=== PATIENT | male | born 1975 | race Caucasian/White ===

== ENCOUNTER 2016-07-21 11:18 | Emergency (ER) | payer SELFPAY, OTHER, MEDICAID ==
[~2016-07-21 11:18] MED LIST: /LOR25TA PO; ACET500T PO; CELE-19 PO; CYCL10TA PO; DICL13PA TD; IBUP200T2 PO; PERC10TA17 PO; SOMA350T PO; ULTR50TA PO; XANA1TAB2 PO
== END 2016-07-21 14:15 | disposition left against medical advice (07) ==
LOC: M ED 11:18
DX: K08.9 Disorder of teeth and supporting structures, unspecified (principal); M54.9 Dorsalgia, unspecified; Z79.899 Other long term (current) drug therapy; Z88.8 Allergy status to other drugs, medicaments and biological substances; Z53.21 Procedure and treatment not carried out due to patient leaving prior to being seen by health care provider

== ENCOUNTER → 2016-10-20 | Outpatient (CLI) | payer OTHER ==
--- NOTE | 2016-10-21 02:11 | REP ---
Clinical: Back pain. Technique: AP, lateral, bilateral oblique, and coned-down views of the lumbosacral spine. Comparison: 06/27/2015. Findings: Moderate levoconvex scoliosis centered at the L2-3 level is unchanged. Grade 1 anterolisthesis at the L5-S1 level with chronic spondylolysis is again appreciated and unchanged. No acute fracture / compression injury. Impression: Levoconvex scoliosis along with spondylolysis and grade 1 spondylolisthesis at the L5-S1 level again noted. Signed by Luis Smith MD 10/21/2016 02:02 A
== END ==
LOC: M RAD 10:24
PROVIDERS: ATTEND Physician Assistant Medical
DX: M43.17 Spondylolisthesis, lumbosacral region (principal); M47.817 Spondylosis without myelopathy or radiculopathy, lumbosacral region; M41.9 Scoliosis, unspecified

== ENCOUNTER 2016-11-23 10:51 | Emergency (ER) | payer OTHER ==
[~2016-11-23] VITALS: Ht 180.3 cm; Wt 64.9 kg
[2016-11-23] MEDS ORDERED: OXYC-517 (11:10)
[2016-11-23] MEDS ORDERED: CARI350T20 (11:10)
[2016-11-23] MEDS ORDERED: OXYC30TA84 (11:10)
[2016-11-23] MEDS ORDERED: MEDR4PAK PO (13:35)
--- NOTE | 2016-11-23 13:55 | REP ---
MR SPINE SERIES: Three views. HISTORY: Question progressive spondylolisthesis. Comparison study 10/20/2016. Comparison is also made with 06/27/2015. FINDINGS: A moderate levoconvex lumbar scoliotic curve is again seen. There is a bilateral L5 spondylolysis again noted with a grade 1 L5-S1 spondylolisthesis. This measures 7 mm today, on 06/27/2015, the measurement was 8 mm. There is no evidence of progression. There is degenerative disc narrowing at L5-S1 and some discogenic spurring and narrowing is seen at L3-4 unchanged. Lumbar vertebral body heights are preserved. Pedicles and posterior elements are otherwise intact. Sacrum and SI joints are intact. Psoas margins are symmetric. IMPRESSION: Moderate levoconvex scoliosis. Grade 1, 7 mm, stable L5-S1 spondylolisthesis due to bilateral L5 pars defects. Signed by Humphrey Dasilva MD 11/23/2016 04:41 P
[2016-11-23 13:59] VITALS: BP 124/80
== END 2016-11-23 14:10 | disposition home or self-care (01) ==
LOC: M ED 11:54
DX: M43.17 Spondylolisthesis, lumbosacral region (principal); M54.30 Sciatica, unspecified side; G89.29 Other chronic pain; Z79.899 Other long term (current) drug therapy; Z88.5 Allergy status to narcotic agent; Z88.1 Allergy status to other antibiotic agents

== ENCOUNTER 2018-03-08 11:00 | Emergency (ER) | payer OTHER | END 2018-03-08 13:20 | disposition home or self-care (01) | LOC: M ED 11:00 | DX: M54.5 Low back pain (principal); G71.0 Muscular dystrophy; F17.200 Nicotine dependence, unspecified, uncomplicated | CPT/HCPCS: 99283 ==

== ENCOUNTER 2020-02-07 17:44 | Emergency (ER) | payer OTHER ==
[~2020-02-07] VITALS: Ht 180.3 cm; Wt 65.6 kg
[~2020-02-07 17:44] MED LIST changes: +AMPH1TAB2; +CARI1TAB7; -CELE-19 PO; +CELE1CAP4 PO; +CYCL-707 PO; -CYCL10TA PO; +MEDR4PAK PO; +OXYC-517; +OXYC30TA; +OXYC30TA PO; -PERC10TA17 PO; +PERC10TA26 PO
[2020-02-07] MEDS ORDERED: AMOX875T PO (17:51)
[2020-02-07] MEDS ORDERED: QC A650T3 PO (17:52)
[2020-02-07] MEDS ORDERED: KETOROLAC 30 MG/ML 1ML VIAL IV ONE (18:30)
[2020-02-07] MEDS ORDERED: NS 1,000 ML IV ONE (18:30)
[2020-02-07] MEDS ORDERED: dexameTHASONE 20MG/5ML VIAL (J1100 PER 1MG) IV ONE (18:30)
[2020-02-07] MEDS ORDERED: AMPICILLIN SOD/SULBACTAM SOD 3 GM in D5W MINI-BAG PLUS 100 ML IV ONE (18:30)
[2020-02-07 19:11] LABS: BASO % 0.4 % (0.0-1.0); EOS % 0.4 % (0.0-3.0); HEMATOCRIT 35.2 % (42.0-52.0); HEMOGLOBIN 11.8 g/dl (13.5-17.5); LYMPH # 1.3 10^3/uL (1.5-5.0); LYMPH % 14.8 % (24.0-44.0); MEAN CORPUSCULAR HEMOGLOBIN 31.5 pg (27.0-33.0); MEAN CORPUSCULAR HGB CONC 33.5 g/dl (32.0-36.5); MEAN CORPUSCULAR VOLUME 93.9 fl (80.0-96.0); MONO # 0.7 10^3/uL (0.0-0.8); MONO % 8.7 % (0.0-5.0); NEUTROPHILS # 6.4 10^3/uL (1.5-8.5); NEUTROPHILS % 75.5 % (36.0-66.0); PLATELET COUNT, AUTOMATED 271 10^3/uL (150-450); RED BLOOD COUNT 3.75 10^6/uL (4.30-6.10); WHITE BLOOD COUNT 8.5 10^3/uL (4.0-10.0)
[2020-02-07 19:35] LABS: ERYTHROCYTE SEDIMENTATION RATE 22 mm/hr (0-15)
[2020-02-07] MEDS ORDERED: MORPHINE 4 MG/ML 1ML VIAL/SYRINGE (J2270) IV ONE (19:45)
[2020-02-07 19:56] LABS: ALBUMIN 3.5 GM/DL (3.2-5.2); ALT/SGPT 17 U/L (12-78); BILIRUBIN,DIRECT 0.1 MG/DL (0.0-0.2); BILIRUBIN,TOTAL 0.4 MG/DL (0.2-1.0); BLOOD UREA NITROGEN 10 MG/DL (7-18); C REACTIVE PROTEIN QUANTITATIV 6.59 MG/DL (0.00-0.30); CALCIUM LEVEL 9.3 MG/DL (8.5-10.1); CARBON DIOXIDE LEVEL 34 MEQ/L (21-32); CHLORIDE LEVEL 103 MEQ/L (98-107); CREATININE FOR GFR 0.69 MG/DL (0.70-1.30); GLOMERULAR FILTRATION RATE > 60.0 (>60); GLUCOSE, FASTING 94 MG/DL (70-100); POTASSIUM SERUM 4.2 MEQ/L (3.5-5.1); SODIUM LEVEL 137 MEQ/L (136-145)
[2020-02-07] MEDS ORDERED: ISOVUE-370 76% 100ML VIAL As Ordered ONE (20:15)
--- NOTE | 2020-02-07 20:36 | REPVR ---
PROCEDURE INFORMATION: Exam: CT Maxillofacial With Contrast Exam date and time: 02/07/2020 8:19 PM Age: 44 years old Clinical indication: Jaw pain; Additional info: Right face swelling/? Abscess TECHNIQUE: Imaging protocol: Computed tomography images of the face with intravenous contrast. Radiation optimization: All CT scans at this facility use at least one of these dose optimization techniques: automated exposure control; mA and/or kV adjustment per patient size (includes targeted exams where dose is matched to clinical indication); or iterative reconstruction. Contrast material: ISOVUE 370; Contrast volume: 75 ml; Contrast route: INTRAVENOUS (IV); COMPARISON: No relevant prior studies available. FINDINGS: Orbits: Orbits are normal. Globes are unremarkable. Bones/joints: Degenerative spondylosis cervical spine. Sinuses: Inflammatory changes right maxillary sinus. Nasal cavity: Small bilateral jelly bullosa. Soft tissues: Soft tissue inflammation demonstrated in the right perimandibular region. No well-defined abscess demonstrated. Asymmetric enlargement of the right sternocleidomastoid muscle, a finding of uncertain significance which should be correlated clinically. No focal lesions seen. IMPRESSION: 1. Soft tissue inflammation demonstrated in the right perimandibular region. No well-defined abscess demonstrated. 2. Inflammatory changes right maxillary sinus. 3. Asymmetric enlargement of the right sternocleidomastoid muscle, a finding of uncertain significance which should be correlated clinically. No focal lesions seen. Electronically signed by: Abhijit Parker On 02/07/2020 20:36:54 PM
[2020-02-07 22:16] VITALS: BP 122/76
[2020-02-07] MEDS ORDERED: AUGM875T28 PO (22:16)
[2020-02-07] MEDS ORDERED: PRED20TA PO (22:17)
== END 2020-02-07 22:30 | disposition home or self-care (01) ==
LOC: M ED 17:44
DX: K04.7 Periapical abscess without sinus (principal); R51 Headache; R11.10 Vomiting, unspecified; M54.9 Dorsalgia, unspecified; Z88.1 Allergy status to other antibiotic agents; Z88.5 Allergy status to narcotic agent; Z79.2 Long term (current) use of antibiotics
CPT/HCPCS: 70487; 80048; 80076; 83605; 85025; 85652; 86140; 96365; 96375; 99284; J1100; J1885; J2270; Q9967

== ENCOUNTER 2020-08-10 11:53 | Emergency (ER) | payer OTHER ==
[~2020-08-10] VITALS: Ht 180.3 cm; Wt 66.6 kg
[~2020-08-10 11:53] MED LIST changes: +AMOX875T PO; +AUGM875T28 PO; +PRED20TA PO; +QC A650T3 PO
[2020-08-10] MEDS ORDERED: BUPR1FIL5 SL (12:03)
[2020-08-10] MEDS ORDERED: IBUP200T45 PO (12:03)
[2020-08-10] MEDS ORDERED: AMPICILLIN SOD/SULBACTAM SOD 3 GM in D5W MINI-BAG PLUS 100 ML IV ONE (12:30)
[2020-08-10] MEDS ORDERED: dexameTHASONE 20MG/5ML VIAL (J1100 PER 1MG) IV ONE (12:30)
[2020-08-10] MEDS ORDERED: NS 1,000 ML IV ONE (12:30)
[2020-08-10 12:48] LABS: BASO % 0.4 % (0.0-1.0); EOS % 0.3 % (0.0-3.0); HEMATOCRIT 34.6 % (42.0-52.0); HEMOGLOBIN 11.2 g/dl (13.5-17.5); LYMPH # 1.3 10^3/uL (1.5-5.0); LYMPH % 17.9 % (24.0-44.0); MEAN CORPUSCULAR HEMOGLOBIN 30.3 pg (27.0-33.0); MEAN CORPUSCULAR HGB CONC 32.4 g/dl (32.0-36.5); MEAN CORPUSCULAR VOLUME 93.5 fl (80.0-96.0); MONO # 0.8 10^3/uL (0.0-0.8); MONO % 11.2 % (2.0-8.0); NEUTROPHILS # 5.1 10^3/uL (1.5-8.5); NEUTROPHILS % 70.1 % (36.0-66.0); PLATELET COUNT, AUTOMATED 235 10^3/uL (150-450); WHITE BLOOD COUNT 7.3 10^3/uL (4.0-10.0)
[2020-08-10] MEDS ORDERED: AUGM875T28 PO (12:53)
[2020-08-10 13:12] LABS: ERYTHROCYTE SEDIMENTATION RATE 15 mm/hr (0-15)
[2020-08-10 13:22] VITALS: BP 109/63
--- OUTSIDE RECORDS SUMMARY | 2020-08-10 13:48 | CCD ---
Author Organization Unknown Address [address] [place] [address] Phone [phone] Care Team Providers Care Online Merchandising Coordinator Name Role Phone Marlon Dewey Unavailable Unavailable Allergies Code Code System Name Reaction Severity Status Onset 034628 RxNorm Levaquin Active 04/15/2018 Tramadol Hcl Active 04/15/2018 Medications Name Status Start Date Stop Date amoxicillin 875 mg tablet TAKE ONE TABLET BY MOUTH TWICE A DAY FOR 7 DAYS Completed 04/29/2020 amoxicillin 875 mg-potassium clavulanate 125 mg tablet Completed 04/29/2020 buprenorphine 2 mg-naloxone 0.5 [address] film [address] 1 film every day by sublingual route. 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 [facility] (Lab): [address], [place] 05/27/2020 Drug of Abuse Panel, Urine Urine No observation recorded. [facility] [place] [facility]: [address] [facility] [address], [facility] [place] 04/04/2020 Drug Screen, Urine No observation recorde d. [facility] Homebound: [address], [place] Past Encounters 07/22/2020 Opioid Dependence in Remission Marlon Dewey MD: [address] [place] [address], Ph. 06/24/2020 Opioid Dependence in Remission Marlon Dewey MD: [address] [place] [address], Ph. 05/27/2020 Opioid Dependence in Remission Marlon Dewey MD: [address] [place] [address], Ph. 04/29/2020 Opioid Dependence in Remission Marlon Dewey MD: [address] [place] [address], Ph. Social History Tobacco Smoking Status Heavy Tobacco Smoker (1/2 PPD) Vaccine List Notes: Pt declined Flu vaccine Plan of Care Reminders Provider Appointments None recorded. Lab None recorded. Referral None recorded. Procedures None recorded. Surgeries None recorded. Imaging None recorded. Vitals 07/22/2020 04:20PM MAT Height Weight BMI Blood Pressure 71 in 146 lbs 20.4 kg/m2 142/86 mm[Hg] 06/24/2020 04:20PM MAT Height Weight BMI Blood Pressure 71 in 146 lbs 6 oz 20.4 kg/m2 123/78 mm[Hg] 04/29/2020 04:00PM MAT Height Weight BMI Blood Pressure 71 in 139 lbs 16 oz 19.5 kg/m2 106/70 mm[Hg] 02/12/2020 Height Weight Blood Pressure 71 in 146 lbs 7.04 oz 115/74 mm[Hg] 02/06/2020 Height Weight Blood Pressure 71 in 141 lbs 126/79 mm[Hg] 01/09/2020 Height Weight Blood Pressure 71 in 141 lbs 12.8 oz 129/81 mm[Hg] 12/12/2019 Height Weight Blood Pressure 71 in 138 lbs 110/72 mm[Hg] 11/30/2019 Height Weight Blood Pressure 71 in 141 lbs 123/79 mm[Hg]
--- OUTSIDE RECORDS SUMMARY | 2020-08-10 13:48 | CCD ---
Author Organization Unknown Address [address] [place] [address] Phone [phone] Care Team Providers Care [employer] Associate Name Role Phone Marlon Dewey Unavailable Unavailable Allergies Code Code System Name Reaction Severity Status Onset 543118 RxNorm Levaquin Active 04/15/2018 Tramadol Hcl Active 04/15/2018 Medications Name Status Start Date Stop Date amoxicillin 875 mg tablet TAKE ONE TABLET BY MOUTH TWICE A DAY FOR 7 DAYS Completed 04/29/2020 amoxicillin 875 mg-potassium clavulanate 125 mg tablet Completed 04/29/2020 buprenorphine 8 mg-naloxone 2 mg subling ual film PL[address] 1 FILM UNDER THE TONGUE EVERY DAY. MAXIMUM DAILY DOSE 1 FILM Active Not [...] of Oral Cavity Active 02/06/2020 History Procedures Notes: Double hernia operation 1987 Results Lab Results Date Name Specimen Result Interpretation Description Value Range Status Address 04/04/2020 Drug Screen, Urine No observation recorde d. [facility] Homebound: [address], [place] Past Encounters 05/27/2020 Opioid Dependence in Remission Marlon Dewey MD: [address] [place] [address], Ph. 04/29/2020 Opioid Dependence in Remission Marlon Dewey MD: [address] [place] [address], Ph. Social History Tobacco Smoking Status Heavy Tobacco Smoker (1/2 PPD) Vaccine List None recorded. Plan of Care Reminders Provider Appointments None recorded. Lab None recorded. Referral None recorded. Procedures None recorded. Surgeries None recorded. Imaging None recorded. Vitals 04/29/2020 04:00PM MAT Height Weight BMI Blood [...]
--- OUTSIDE RECORDS SUMMARY | 2020-08-10 13:48 | CCD ---
Author Organization Unknown Address [address] [place] [address] Phone [phone] Care Team Providers Care Building Superintendent Name Role Phone Marlon Dewey Unavailable Unavailable Allergies Code Code System Name Reaction Severity Status Onset 922950 RxNorm Levaquin Active 04/15/2018 Tramadol Hcl Active 04/15/2018 Medications Name Status Start Date Stop Date amoxicillin 875 mg tablet TAKE ONE TABLET BY MOUTH TWICE A DAY FOR 7 DAYS Completed 04/29/2020 amoxicillin 875 mg-potassium clavulanate 125 mg tablet Completed 04/29/2020 buprenorphine 8 mg-naloxone 2 mg subling ual film PLACE 1 FILM UNDER THE TONGUE EVERY DAY MAXIMUM DAILY DOSE 1 FILM NEXT FILL DATE 06/25/20 Active Not available buprenorphine 8 mg-naloxone 2 [...] Result Interpretation Description Value Range Status Address 05/27/2020 Drug of Abuse Panel, Urine Urine No observation recorded. [facility] [place] [facility] [place] [facility]: [address] [facility] [address], [facility] 04/04/2020 Drug Screen, Urine No observation recorde d. [facility] Homebound: [address] , [place] Past Encounters 06/24/2020 Opioid Dependence in Remission Marlon Dewey MD: [address] [place] [address], Ph. 05/27/2020 Opioid Dependence in Remission Marlon Dewey MD: [address] [place] [address], Ph. 04/29/2020 Opioid Dependence in Remission Marlon Dewey MD: [address] [place] [address], Ph. Social History Tobacco Smoking Status Heavy Tobacco Smoker (1/2 PPD) Vaccine List Notes: Pt declined Flu vaccine Plan of Care Reminders Provider Appointments None recorded. Lab None recorded. Referral None recorded. Procedures None recorded. Surgeries None recorded. Imaging None recorded. Vitals 06/24/2020 04:20PM MAT Height Weight BMI Blood [...]
--- OUTSIDE RECORDS SUMMARY | 2020-08-10 13:48 | CCD ---
Author Author [facility] Organization [facility] Address Unknown Phone Unavailable Care Team Providers [facility] [place] [facility] Supervisor Name Role Phone Zuleika Dewey MD Unavailable Unavailable Zuleika Dewey MD Unavailable Unavailable Zuleika Dewey MD Unavailable Unavailable Zuleika Dewey MD Unavailable Unavailable Zuleika Dewey MD Unavailable Unavailable Zuleika Dewey MD Unavailable Unavailable Zuleika Dewey MD Unavailable Unavailable Zuleika Dewey MD Unavailable Unavailable Zuleika Dewey MD Unavailable Unavailable Zuleika Dewey MD Unavailable Unavailable Zuleika Dewey MD Unavailable Unavailable Zuleika Dewey MD Unavailable Unavailable Zuleika Dewey MD Unavailable Unavailable Zuleika Dewey MD Unavailable Unavailable Zuleika Dewey MD Unavailable Unavailable Zuleika Dewey MD Unavailable Unavailable Zuleika Dewey MD Unavailable Unavailable Zuleika Dewey MD Unavailable Unavailable Zuleika Dewey MD Unavailable Unavailable Zuleika Dewey MD Unavailable Unavailable Zuleika Dewey MD Unavailable Unavailable Zuleika Dewey MD Unavailable Unavailable Zuleika Dewey MD Unavailable Unavailable Zuleika Dewey MD Unavailable Unavailable Zuleika Dewey MD Unavailable Unavailable Zuleika Dewey MD Unavailable Unavailable Zuleika Dewey MD Unavailable Unavailable Zuleika Dewey MD Unavailable Unavailable Zuleika Dewey MD Unavailable Unavailable Zuleika Dewey MD Unavailable Unavailable Zuleika Dewey MD Unavailable Unavailable Zuleika Dewey MD Unavailable Unavailable Zuleika Dewey MD Unavailable Unavailable Zuleika Dewey MD Unavailable Unavailable Zuleika Dewey MD Unavailable Unavailable Zuleika Dewey MD Unavailable Unavailable Zuleika Dewey MD Unavailable Unavailable Zuleika Dewey MD Unavailable Unavailable Zuleika Dewey MD Unavailable Unavailable Zuleika Dewey MD Unavailable Unavailable Zuleika Dewey MD Unavailable Unavailable Zuleika Dewey MD Unavailable Unavailable Zuleika Dewey MD Unavailable Unavailable Zuleika Dewey MD Unavailable Unavailable Zuleika Dewey MD Unavailable Unavailable Zuleika Dewey MD Unavailable Unavailable Zuleika Dewey MD Unavailable Unavailable Zuleika Dewey MD Unavailable Unavailable Zuleika Dewey MD Unavailable Unavailable Zuleika Dewey MD Unavailable Unavailable Zuleika Dewey MD Unavailable Unavailable Zuleika Dewey MD Unavailable Unavailable Zuleika Dewey MD Unavailable Unavailable Zuleika Dewey MD Unavailable Unavailable Zuleika Dewey MD Unavailable Unavailable Zuleika Dewey MD Unavailable Unavailable Zuleika Dewey MD Unavailable Unavailable Zuleika Dewey MD Unavailable Unavailable Zuleika Dewey MD Unavailable Unavailable Zuleika Dewey MD Unavailable Unavailable Zuleika Dewey MD Unavailable Unavailable Zuleika Dewey MD Unavailable Unavailable Zuleika Dewey MD Unavailable Unavailable Zuelika Dewey MD Unavailable Unavailable Zuleika Dewey MD Unavailable Unavailable Zuleika Dewey MD Unavailable Unavailable Zuleika Dewey MD Unavailable Unavailable Zuleika Dewey MD Unavailable Unavailable Zuleika Dewey MD Unavailable Unavailable Zuleika Dewey MD Unavailable Unavailable Zuleika Dewey MD Unavailable Unavailable Zuleika Dewey MD Unavailable Unavailable Zuleika Dewey MD Unavailable Unavailable Zuleika Dewey MD Unavailable Unavailable Zuleika Dewey MD Unavailable Unavailable Zuleika Dewey MD Unavailable Unavailable Zuleika Dewey MD Unavailable Unavailable Zuleika Dewey MD Unavailable Unavailable Zuleika Dewey MD Unavailable Unavailable Zuleika Dewey MD Unavailable Unavailable Zuleika Dewey MD Unavailable Unavailable Zuleika Dewey MD Unavailable Unavailable Zuleika Dewey MD Unavailable Unavailable Zuleika Dewey MD Unavailable Unavailable Zuleika Dewey MD Unavailable Unavailable Zuleika Dewey MD Unavailable Unavailable Zuleika Dewey MD Unavailable Unavailable Zuleika Dewey MD Unavailable Unavailable Zuleika Dewey MD Unavailable Unavailable Be ORTIZ Unavailable Unavailable Zuleika Dewey MD Unavailable Unavailable Zuleika Dewey MD Unavailable Unavailable Zuleika Dewey MD Unavailable Unavailable Zuleika Dewey MD Unavailable Unavailable Zuleika Dewey MD Unavailable Unavailable Zuleika Dewey MD Unavailable Unavailable Zuleika Dewey MD Unavailable Unavailable Zuleika Dewey MD Unavailable Unavailable Zuleika Dewey MD Unavailable Unavailable Zuleika Dewey MD Unavailable Unavailable Zuleika Dewey MD Unavailable Unavailable Zuleika Dewey MD Unavailable Unavailable Zuleika Dewey MD Unavailable Unavailable Zuleika Dewey MD Unavailable Unavailable Zuleika Dewey MD Unavailable Unavailable Zuleika Dewey MD Unavailable Unavailable Zuleika Dewey MD Unavailable Unavailable Zuleika Dewey MD Unavailable Unavailable Zuleika Dewey MD Unavailable Unavailable Zuleika Dewey MD Unavailable Unavailable Zuleika Dewey MD Unavailable Unavailable Zuleika Dewey MD Unavailable Unavailable Zuleika Dewey MD Unavailable Unavailable Zuleika Dewey MD Unavailable Unavailable Zuleika Dewey MD Unavailable Unavailable Zuleika Dewey MD Unavailable Unavailable Zuleika Dewey MD Unavailable Unavailable Zuleika Dewey MD Unavailable Unavailable Zuleika Dewey MD Unavailable Unavailable Zuleika Dewey MD Unavailable Unavailable Zuleika Dewey MD Unavailable Unavailable Zuleika Dewey MD Unavailable Unavailable Zuleika Dewey MD Unavailable Unavailable Zuleika Dewey MD Unavailable Unavailable Zuleika Dewey MD Unavailable Unavailable Zuleika Dewey MD Unavailable Unavailable Zuleika Dewey MD Unavailable Unavailable Zuleika Dewey MD Unavailable Unavailable Zuleika Dewey MD Unavailable Unavailable Zuleika Dewey MD Unavailable Unavailable Zuleika Dewey MD Unavailable Unavailable Zuleika Dewey MD Unavailable Unavailable Zuleika Dewey MD Unavailable Unavailable Zuleika Dewey MD Unavailable Unavailable Zuleika Dewey MD Unavailable Unavailable Zulekia Dewey MD Unavailable Unavailable Zuleika Dewey MD Unavailable Unavailable Zuleika Dewey MD Unavailable Unavailable Zuleika Dewey MD Unavailable Unavailable Zuleika Dewey MD Unavailable Unavailable Zuleika Dewey MD Unavailable Unavailable Zuleika Dewey MD Unavailable Unavailable Zuleika Dewey MD Unavailable Unavailable Zuleika Dewey MD Unavailable Unavailable Zuleika Dewey MD Unavailable Unavailable Zuleika Dewey MD Unavailable Unavailable Zuleika Dewey MD Unavailable Unavailable Zuleika Dewey MD Unavailable Unavailable Zuleika Dewey MD Unavailable Unavailable Zuleika Dewey MD Unavailable Unavailable Zuleika Dewey MD Unavailable Unavailable Zuleika Dewey MD Unavailable Unavailable Zuleika Dewey MD Unavailable Unavailable Zuleika Dewey MD Unavailable Unavailable Zuleika Dewey MD Unavailable Unavailable Zuleika Dewey MD Unavailable Unavailable Zuleika Dewey MD Unavailable Unavailable Zuleika Dewey MD Unavailable Unavailable Zuleika Dewey MD Unavailable Unavailable Zuleika Dewey MD Unavailable Unavailable Zuleika Dewey MD Unavailable Unavailable Zuleika Dewey MD Unavailable Unavailable Zuleika Dewey MD Unavailable Unavailable Zuleika Dewey MD Unavailable Unavailable Zuleika Dewey MD Unavailable Unavailable Zuleika Dewey MD Unavailable Unavailable Zuleika Dewey MD Unavailable Unavailable Zuleika Dewey MD Unavailable Unavailable Zuleika Dewey MD Unavailable Unavailable Zuleika Dewey MD Unavailable Unavailable Zuleika Dewey MD Unavailable Unavailable Zuleika Dewey MD Unavailable Unavailable Zuleika Dewey MD Unavailable Unavailable Zuleika Dewey MD Unavailable Unavailable Zuleika Dewey MD Unavailable Unavailable Zuleika Dewey MD Unavailable Unavailable Zuleika Dewey MD Unavailable Unavailable Zuleika Dewey MD Unavailable Unavailable Zuleika Dewey MD Unavailable Unavailable SLY, RAHUL MARY ALICE PA Unavailable Unavailable SLY, RAHUL MARY ALICE PA Unavailable Unavailable SLY, RAHUL MARY ALICE PA Unavailable Unavailable SLY, RAHUL MARY ALICE PA Unavailable Unavailable SLY, RAHUL MARY ALICE PA Unavailable Unavailable SLY, RAHUL MARY ALICE PA Unavailable Unavailable SLY, RAHUL MARY ALICE PA Unavailable Unavailable SLY, RAHUL MARY ALICE PA Unavailable Unavailable SLY, RAHUL MARY ALICE PA Unavailable Unavailable SLY, RAHUL MARY ALICE PA Unavailable Unavailable SLY, RAHUL MARY ALICE PA Unavailable Unavailable SLY, RAHUL MARY ALCIE PA Unavailable Unavailable SLY, RAHUL MARY ALICE PA Unavailable Unavailable SLY, RAHUL MARY ALICE PA Unavailable Unavailable SLY, RAHUL MARY ALICE PA Unavailable Unavailable SLY, RAHUL MARY ALICE PA Unavailable Unavailable SLY, RAHUL MARY ALICE PA Unavailable Unavailable SLY, RAHUL MARY ALICE PA Unavailable Unavailable SLY, RAHUL MARY ALICE PA Unavailable Unavailable SLY, RAHUL MARY ALICE PA Unavailable Unavailable RAHUL HEART Unavailable Unavailable Re-disclosure Warning The records that you are about to access may contain information from federally-assisted alcohol or drug abuse programs. If such information is present, then the following federally mandated warning applies: This information has been disclosed to you from records protected by federal confidentiality rules (42 CFR part 2). The federal rules prohibit you from making any further disclosure of this information unless further disclosure is expressly permitted by the written consent of the person to whom it pertains or as otherwise permitted by 42 CFR part 2. A general authorization for the release of medical or other information is NOT sufficient for this purpose. The Federal rules restrict any use of the information to criminally investigate or prosecute any alcohol or drug abuse patient.The records that you are about to access may contain highly sensitive health information, the redisclosure of which is protected by Article 27-F of the [facility] Public Health law. If you continue you may have access to information: Regarding HIV / AIDS; Provided by facilities licensed or operated by the [facility] Office of Mental Health; or Provided by the [facility] Office for People With Developmental Disabilities. If such information is present, then the following [facility] mandated warning applies: This information has been disclosed to you from confidential records which are protected by state law. State law prohibits you from making any further disclosure of this information without the specific written consent of the person to whom it pertains, or as otherwise permitted by law. Any unauthorized further disclosure in violation of state law may result in a fine or residential sentence or both. A general authorization for the release of medical or other information is NOT sufficient authorization for further disc losure. Family History Family Member Name Family Member Gender Family Member Status Date o f Status Description Data Source(s) Unknown Male Problem [facility]ENT ([facility]) () Unknown Unknown Encounters Encounter Providers Location Date Indications Data Source(s ) Marlon Dewey MD: [address] [place] [address], Ph. Attender: Marlon Dewey MD [facility] Medical 07/22/2020 12:00:00 AM EST [facility] ([facility]) Marlon Dewey MD: [address] [facility] [place] [address], Ph. Attender: Marlon Dewey MD [facility] Medical 06/24/2020 12:00:00 AM EST [facility] ([facility]) Marlon Dewey MD: [address] [place] [address], Ph. Attender: Marlon Dewey MD [facility] Medical 06/24/2020 12:00:00 AM EST [facility] ([facility]) Marlon Dewey MD: [address] [place] [address], Ph. Attender: Marlon Dewey MD [facility] Medical 05/27/2020 12:00:00 AM EST [facility] ([facility]) Marlon Dewey MD: [address] [place] [address], Ph. Attender: Marlon Dewey MD [facility] Medical 05/27/2020 12:00:00 AM EST [facility] ([facility]) Marlon Dewey MD: [address] [place] [address], Ph. Attender: Marlon Dewey MD [facility] Medical 05/27/2020 12:00:00 AM EST [facility] ([facility]) Outpatient Attender: Marlon Dewey MD 04/30/2020 12:00:46 AM [facility] Outpatient Attender: Marlon Dewey MD 04/29/2020 03:21:00 PM EST [facility] Marlon Dewey MD: [address] [place] [address], Ph. Attender: Marlon Dewey MD [facility] Medical 04/29/2020 12:00:00 AM EST [facility] ([facility]) Marlon Dewey MD: [address] [place] [address], Ph. Attender: Marlon Dewey MD [facility] Medical 04/29/2020 12:00:00 AM EST [facility] ([facility]) Marlon Dewey MD: [address] [place] [address], Ph. Attender: Marlon Dewey MD [facility] Medical 04/29/2020 12:00:00 AM EST [facility] ([facility]) Marlon Dewey MD: [address] [place] [address], Ph. Attender: Marlon Dewey MD [facility] Medical 04/29/2020 12:00:00 AM EST [facility] ([facility]) Outpatient Attender: Marlon Dewey MD 04/19/2020 12:02:07 AM EDT [facility] Outpatient Attender: Marlon Dewey MD 04/05/2020 01:19:02 PM EDT [facility] Outpatient Attender: Marlon Dewey MD 04/04/2020 02:37:00 PM EDT [facility] Outpatient Attender: EZEQUIEL ORTIZ 03/21/2020 10:00:00 AM [facility] Outpatient Attender: Marlon Dewey MD 03/08/2020 12:02:11 AM EDT [facility] Outpatient Attender: Marlon Dewey MD 03/07/2020 11:08:00 AM EDT [facility] Outpatient Attender: Marlon Dewey MD FP 03/07/2020 12:02:21 AM EDT [facility] Outpatient Attender: Marlon Dewey MD FP 03/06/2020 10:28:01 AM EDT [facility] Outpatient Attender: Marlon Dewey MD FP 03/04/2020 11:23:02 AM EDT [facility] Outpatient Attender: Marlon Dewey MD FP 03/04/2020 11:12:00 AM EDT [facility] Outpatient Attender: Marlon Dewey MD FP 02/29/2020 12:00:39 AM EDT [facility] Outpatient Attender: Marlon Dewey MD FP 02/12/2020 08:44:00 AM EDT [facility] Outpatient Attender: Marlon Dewey MD FP 02/07/2020 10:41:01 AM EDT [facility] Outpatient Attender: Marlon Dewey MD FP 02/07/2020 10:40:00 AM EDT [facility] Outpatient Attender: Marlon Dewey MD FP 02/06/2020 04:47:00 PM EDT [facility] Outpatient Attender: Marlon Dewey MD FP 02/01/2020 12:00:29 AM EDT [facility] Outpatient Attender: Marlon Dewey MD FP 01/09/2020 04:32:00 PM EDT [facility] Outpatient Attender: Marlon Dewey MD FP 01/08/2020 10:47:01 AM EDT [facility] Outpatient Attender: Marlon Dewey MD FP 01/02/2020 02:00:04 PM EDT [facility] Outpatient Attender: Marlon Dewey MD FP 01/02/2020 01:59:01 PM EDT [facility] Outpatient Attender: Marlon Dewey MD FP 12/12/2019 04:23:00 PM EDT [facility] Outpatient Attender: Marlon Dewey MD FP 11/30/2019 04:49:00 PM EDT [facility] Outpatient Attender: Marlon Dewey MD 11/30/2019 04:11:00 PM EDT [facility] Outpatient Attender: Marlon Dewey MD FP 11/28/2019 07:48:26 PM EDT [facility] Outpatient Attender: Marlon Dewey MD 11/22/2019 11:31:01 AM EDT [facility] Outpatient Attender: Marlon Dewey MD 11/22/2019 11:30:01 AM EDT [facility]: [facility] 11/21/2019 03:35:01 PM EDT [facility] Outpatient Attender: Marlon Dewey MD [facility] 11/21/2019 07:55:00 AM EDT [facility] Outpatient Attender: Marlon Dewey MD [facility] 11/17/2019 02:17:00 PM EDT [facility] Outpatient Attender: Marlon Dewey MD [facility] 11/17/2019 02:16:00 PM EDT [facility] Outpatient Attender: Marlon Dewey MD [facility] 11/17/2019 02:15:00 PM EDT [facility] Outpatient Attender: Marlon MARTINEZ 11/17/2019 09:25:01 AM EDT [facility] Outpatient Attender: Marlon CHAMBERS 11/17/2019 09:24:00 AM EDT [facility] Outpatient Attender: Marlon CHAMBERS 11/17/2019 09:23:01 AM EDT [facility] Outpatient Attender: Marlon CHAMBERS 11/15/2019 12:22:00 PM EDT [facility] Outpatient Attender: Marlon CHAMBERS 06/29/2019 10:18:00 AM EST [facility] Emergency Attender: [facility] 10/22/2015 08:22:00 PM EDT - 10/22/2015 09:35:[address] [facility] Medications Medication Brand Name Start Date Product Form Dose Route Admi nistrative Instructions Pharmacy Instructions Status Indications Reaction Description Data Source(s) 8-2 mg 07/22/2020 12:00:00 AM EST film [address] ONE FILM UNDER THE TONGUE EVERY DAY MAXIMUM DAILY DOSE = [address] ONE FILM UNDER THE TONGUE EVERY DA Y MAXIMUM DAILY DOSE = 1 FILM SOLD: 07/22/2020 [facility] 2-0.5 mg 07/22/2020 12:00:00 AM EST film 30 PLACE ONE FILM UNDER THE TONGUE EVERY DAY MAXIMUM DAILY DOSE = [address] ONE FILM UNDER THE TONGUE EVERY DA Y MAXIMUM DAILY DOSE = 1 FILM SOLD: 07/22/2020 [facility] 8-2 mg 06/25/2020 12:00:00 AM EST film 30 PL[address] ONE FILM UNDER THE TONGUE EVERY DAY MAXIMUM DAILY DOSE = [address] ONE FILM UNDER THE TONGUE EVERY DA Y MAXIMUM DAILY DOSE = 1 FILM SOLD: 06/25/2020 [facility] 8-2 mg 05/27/2020 12:00:00 AM EST film 30 PLACE 1 FILM UNDER THE TONGUE EVERY DAY MAXIMUM DAILY DOSE = 1 FILM NEXT FILL DATE 06/25/20 PLACE 1 FILM UNDER THE TONGUE EVERY DAY MAXIMUM DAILY DOSE = 1 FILM NEXT FILL DATE 06/25/20 SOLD: 05/27/2020 [facility] 8-2 mg 05/01/2020 12:00:00 AM EST film 30 PLACE 1 FILM UNDER THE TONGUE EVERY DAY. MAXIMUM DAILY DOSE = [address] 1 FILM UNDER THE TONGUE EVERY DAY. MAXIMUM DAILY DOSE = 1 FILM SOLD: 05/02/2020 [facility] 8-2 mg 04/05/2020 12:00:00 AM EDT film 30 PLACE ONE FILM UNDER THE TONGUE EVERY DAY MAXIMUM DAILY DOSE = 1 PLACE ONE FILM UNDER THE TONGUE EVERY DA Y MAXIMUM DAILY DOSE = 1 SOLD: 04/07/2020 [facility] 8-2 mg 03/09/2020 12:00:00 AM EDT film 30 PL[address] ONE FILM UNDER THE TONGUE EVERY DAY MAXIMUM DAILY DOSE = [address] ONE FILM UNDER THE TONGUE EVERY DA Y MAXIMUM DAILY DOSE = 1 FILM SOLD: 03/09/2020 [facility] 8-2 mg 02/12/2020 12:00:00 AM EDT film 30 TAKE 1 FILM UNDER THE TONGUE DAILY. MAXIMUM DAILY DOSE = 1 FILM TAKE 1 FILM UNDER THE TONGUE DAILY. MAXI MUM DAILY DOSE = 1 FILM SOLD: 02/12/2020 [facility] 20 mg 02/08/2020 12:00:00 AM EDT tablet 15 TAKE THREE TABLETS BY MOUTH DAILY TAKE THREE TABLETS BY MOUTH DAILY SOLD: 02/08/2020 [facility] 875-125 mg 02/08/2020 12:00:00 AM EDT tablet 20 TAKE ONE TABLET BY MOUTH TWICE A DAY TAKE ONE TABLET BY MOUTH TWICE A DAY SOLD: 02/08/2020 [facility] 8-2 mg 02/06/2020 12:00:00 AM EDT film 7 PLACE ONE FILM UNDER THE TONGUE EVERY DAY MAXIMUM DAILY DOSE = [address] ONE FILM UNDER THE TONGUE EVERY DA Y MAXIMUM DAILY DOSE = 1 FILM SOLD: 02/06/2020 [facility] 875 mg 02/06/2020 12:00:00 AM EDT tablet 14 TAKE ONE TABLET BY MOUTH TWICE A DAY FOR 7 DAYS TAKE ONE TABLET BY MOUTH TWICE A DAY FOR 7 DAYS SOLD: 2019 [facility] 8-2 mg 01/09/2020 12:00:00 AM EDT film 30 PLACE ONE FILM UNDER THE TONGUE EVERY DAY MAXIMUM DAILY DOSE = ONE FILM PLACE ONE FILM UNDER THE TONGUE EVERY DAY MAXIMUM DAILY DOSE = ONE FILM SOLD: 01/09/2020 [facility] 8-2 mg 12/12/2019 12:00:00 AM EDT film 30 PLACE ONE FILM UNDER THE TONGUE EVERY DAY MAXIMUM DAILY DOSE = [address] ONE FILM UNDER THE TONGUE EVERY DA Y MAXIMUM DAILY DOSE = 1 FILM SOLD: 12/12/2019 [facility] 8-2 mg 11/30/2019 12:00:00 AM EDT tablet, sublingual 14 PLACE ONE TABLET UNDER THE TONGUE EVERY DAY MAXIMUM DAILY DOSE = [address] ONE TABLET UNDER THE TONGUE EVERY DAY MAXIMUM DAILY DOSE = 1 FILM SOLD: 11/30/2019 [facility] 8-2 mg 11/17/2019 12:00:00 AM EDT film 14 TAKE 1 FILM UNDER THE TONGUE DAILY MAXIMUM DAILY DOSE = 1 TAKE 1 FILM UNDER THE TONGUE DAILY MAXIM UM DAILY DOSE = 1 SOLD: 11/17/2019 [facility] Prednisone 20 MG Oral Tablet prednisone 20 mg tablet TAKE THREE TABLETS BY MOUTH DAILY prednisone 20 mg tablet TAKE THREE TABLETS BY MOUTH DAILY completed prednisone 20 MG Oral Tablet [facility] ([facility]) Buprenorphine 8 MG / Naloxone 2 MG Subli ngual Tablet buprenorphine 8 mg-naloxone 2 mg sublingual tablet buprenorphine 8 mg-naloxone 2 mg sublingual tablet completed buprenorphine 8 MG / naloxone 2 MG Sublingual Tablet [facility] ([facility]) Prednisone 20 MG Oral Tablet prednisone 20 mg tablet TAKE THREE TABLETS BY MOUTH DAILY prednisone 20 mg tablet TAKE THREE TABLETS BY MOUTH DAILY completed prednisone 20 MG Oral Tablet [facility] ([facility]) Amoxicillin 875 MG Oral Tablet amoxicill in 875 mg tablet TAKE ONE TABLET BY MOUTH TWICE A DAY FOR 7 DAYS amoxicillin 875 mg tablet TAKE ONE TABLE T BY MOUTH TWICE A DAY FOR 7 DAYS completed amoxicillin 875 MG Oral Tablet [facility] ([facility]) Amoxicillin 875 MG / Clavulanate 125 MG Oral Tablet amoxicillin 875 mg-potassium clavulanate 125 mg tablet amoxicillin 875 mg-potassium clavulanate 125 mg tablet completed amoxicillin 875 MG / clavulanate 125 MG Oral Tablet [facility] ([facility]) Prednisone 20 MG Oral Tablet prednisone 20 mg tablet TAKE THREE TABLETS BY MOUTH DAILY prednisone 20 mg tablet TAKE THREE TABLETS BY MOUTH DAILY completed prednisone 20 MG Oral Tablet [facility] ([facility]) Amoxicillin 875 MG / Clavulanate 125 MG Oral Tablet amoxicillin 875 mg-potassium clavulanate 125 mg tablet amoxicillin 875 mg-potassium clavulanate 125 mg tablet completed amoxicillin 875 MG / clavulanate 125 MG Oral Tablet [facility] ([facility]) Amoxicillin 875 MG / Clavulanate 125 MG Oral Tablet amoxicillin 875 mg-potassium clavulanate 125 mg tablet amoxicillin 875 mg-potassium clavulanate 125 mg tablet completed amoxicillin 875 MG / clavulanate 125 MG Oral Tablet [facility] ([facility]) Amoxicillin 875 MG Oral Tablet amoxicill in 875 mg tablet TAKE ONE TABLET BY MOUTH TWICE A DAY FOR 7 DAYS amoxicillin 875 mg tablet TAKE ONE TABLE T BY MOUTH TWICE A DAY FOR 7 DAYS completed amoxicillin 875 MG Oral Tablet [facility] ([facility]) Amoxicillin 875 MG Oral Tablet amoxicill in 875 mg tablet TAKE ONE TABLET BY MOUTH TWICE A DAY FOR 7 DAYS amoxicillin 875 mg tablet TAKE ONE TABLE T BY MOUTH TWICE A DAY FOR 7 DAYS completed amoxicillin 875 MG Oral Tablet [facility] ([facility]) Amoxicillin 875 MG / Clavulanate 125 MG Oral Tablet amoxicillin 875 mg-potassium clavulanate 125 mg tablet amoxicillin 875 mg-potassium clavulanate 125 mg tablet completed amoxicillin 875 MG / clavulanate 125 MG Oral Tablet [place] ([facility]) Buprenorphine 8 MG / Naloxone 2 MG Subli ngual Tablet buprenorphine 8 mg-naloxone 2 mg sublingual tablet buprenorphine 8 mg-naloxone 2 mg sublingual tablet completed buprenorphine 8 MG / naloxone 2 MG Sublingual Tablet [facility]) Buprenorphine 8 MG / Naloxone 2 MG Subli ngual Tablet buprenorphine 8 mg-naloxone 2 mg sublingual tablet buprenorphine 8 mg-naloxone 2 mg sublingual tablet completed buprenorphine 8 MG / naloxone 2 MG Sublingual Tablet [facility]) Prednisone 20 MG Oral Tablet prednisone 20 mg tablet TAKE THREE TABLETS BY MOUTH DAILY prednisone 20 mg tablet TAKE THREE TABLETS BY MOUTH DAILY completed prednisone 20 MG Oral Tablet [facility] ([facility]) Buprenorphine 8 MG / Naloxone 2 MG Subli ngual Tablet buprenorphine 8 mg-naloxone 2 mg sublingual tablet buprenorphine 8 mg-naloxone 2 mg sublingual tablet completed buprenorphine 8 MG / naloxone 2 MG Sublingual Tablet [place] ([facility]) Amoxicillin 875 MG Oral Tablet amoxicill in 875 mg tablet TAKE ONE TABLET BY MOUTH TWICE A DAY FOR 7 DAYS amoxicillin 875 mg tablet TAKE ONE TABLE T BY MOUTH TWICE A DAY FOR 7 DAYS completed amoxicillin 875 MG Oral Tablet [place] ([facility]) Insurance Providers Payer name Policy type / Coverage type Policy ID Covered alliance party ID Covered alliance party's relationship to kurtz Policy [place] Plan Information [facility] [employer] [id number] S [id number] Managed Care - [facility] Community Plan P [id number] S [id number] Medicaid S [id number] S [id number] [facility] [id number] S [id number] MEDICAID [id number] S [id number] [facility](MCAID) O [id number] S [id number] [facility] [id number] S [id number] [facility] COMMUNITY PLAN [facility] [id number] SP [id number] Medicaid S [id number] S [id number] SELF PAY UNAVAILABLE SP UNAVAILA BLE Managed Care - [facility] P [id number] S [id number] Medicaid S [id number] S [id number] Managed Care - [facility] P [id number] S [id number] [facility] I [id number] Self [id number] ANSI-Medicaid [id number] MVP EXCHANGE U [id number] Self [id number] Medicaid S none S none Self Pay P none S none ANS-Medicaid [id number] ANS-Medicaid [id number] [facility] COMMUNTY PLAN [id number] [facility] Communty Plan Medicaid [id number] Self [id number] COMMUNITY PLAN XIX [id number] 18 [id number] [facility] Communty Plan Medicaid [id number] Self 10 [id number] [facility] Communty Plan Medicaid [id number] Self 10 [id number] [employer] BENEFIT SOLUTIO O [id number] S [id number] AMERICHOICE UNHC XIX O -[facility] [id number] 1 [id number] LIFETIME BENEFIT SOLUTIONS [id number] SP [id number] [facility] [id number] SP [id number] SELF PAY ONLY UNAVAILABLE SP UNAV AILABLE MEDICAID [id number] SP [id number] SELF PAY ONLY [id number] SP [id number] SELF PAY SP [id number] S [id number] [facility] HMO [id number] S [id number] SELF PAY SP UNAVAILABLE UNAVAILA BLE [facility] HMO [id number] S [id number] Self Pay P UNAVAILABLE S UNAVAILA BLE D MVP P UNAVAILABLE S UNAVAILA BLE MVP EXCHANGE U [id number] Self [id number] [place] Medigap Part B Self [place] Medigap Part B Self c Community Plan [facility] Health Maintenance Organization (HMO) Self [facility] COMMUNITY PL[facility] UNKNOWN SP UNKNOWN [id number] Problems, Conditions, and Diagnoses Code Display Name Description Problem Type Effective Dates Data Source(s) 849336317 Mass of oral cavity Mass of Oral Cavity Problem 0 02/06/2020 12:00:00 AM EDT [place] ([facility]) [id number] Mass of oral cavity Mass of Oral Cavity Problem 0 02/06/2020 12:00:00 AM EDT [place] ([facility]) 650450409 Mass of oral cavity Mass of Oral Cavity Problem 0 02/06/2020 12:00:00 AM EDT [place] ([facility]) 661303411 Mass of oral cavity Mass of Oral Cavity Problem 0 02/06/2020 12:00:00 AM EDT [place] ([facility]) 940806476 Opioid dependence in remission Opioid Dependence in Re mission Problem 11/30/2019 12:00:00 AM EDT [place] ([facility]) 275344902 Opioid dependence in remission Opioid Dependence in Re mission Problem 11/30/2019 12:00:00 AM EDT [place] ([facility]) 207962415 Opioid dependence in remission Opioid Dependence in Re mission Problem 11/30/2019 12:00:00 AM EDT [place] ([facility]) 834922185 Opioid dependence in remission Opioid Dependence in Re mission Problem 11/30/2019 12:00:00 AM EDT [place] ([facility]) F60.9 Personality disorder, unspecified PERSONALITY DI SORDER, UNSPECIFIED Diagnosis 03/21/2020 10:00:[address] [facility] Results ID Date Data Source [id number] 06/24/2020 12:00:00 AM EST [facility]) Name Value Range Interpretation Code Description Data Tanisha rce(s) Supporting Document(s) ID Date Data Source [id number] 05/27/2020 12:46:00 PM EST [place] ([facility]) Name Value Range Interpretation Code Description Data Tanisha rce(s) Supporting Document(s) ID Date Data Source [id number] 05/27/2020 12:46:00 PM EST [facility]) Name Value Range Interpretation Code Description Data Tanisha rce(s) Supporting Document(s) ID Date Data Source [id number] 04/04[facility]2020 [facility] Name Value Range Interpretation Code Description Data Tanisha rce(s) Supporting Document(s) ID Date Data Source [id number] 04/04/2020 12:00:00 [facility] Name Value Range Interpretation Code Description Data Tanisha rce(s) Supporting Document(s) ID Date Data Source [id number] 04/04/2020 12:00:00 [facility] Name Value Range Interpretation Code Description Data Tanisha rce(s) Supporting Document(s) ID Date Data Source [id number] 04/04/2020 12:00:00 [facility] Name Value Range Interpretation Code Description Data Tanisha rce(s) Supporting Document(s) Procedure Vital Signs ID Date Data Source UNK Name Value Range Interpretation Code Description Data Source(s) Body weight 2336 [oz_av] 2336 [oz_av] [place] ([facility]) Systolic blood pressure 142 mm[Hg] 142 mm[Hg] A [place] ([facility]) Body mass index (BMI) [Ratio] 20.4 kg/m2 20.4 k g/m2 [place] ([facility]) Body height 71 [in_i] 71 [in_i] [place] ([facility]) Diastolic blood pressure 86 mm[Hg] 86 mm[Hg] [place] ([facility]) Body weight 2342 [oz_av] 2342 [oz_av] [facility] ([facility]) Systolic blood pressure 123 mm[Hg] 123 mm[Hg] [facility] Body mass index (BMI) [Ratio] 20.4 kg/m2 20.4 k g/m2 [place] ([facility]) Body height 71 [in_i] 71 [in_i] [place] ([facility]) Diastolic blood pressure 78 mm[Hg] 78 mm[Hg] [place] ([facility]) Body weight 2342 [oz_av] 2342 [oz_av] [place] ([facility]) Systolic blood pressure 123 mm[Hg] 123 mm[Hg] A [place] ([facility]) Body mass index (BMI) [Ratio] 20.4 kg/m2 20.4 k g/m2 [place] ([facility]) Body height 71 [in_i] 71 [in_i] [place] ([facility]) Diastolic blood pressure 78 mm[Hg] 78 mm[Hg] [place] ([facility]) Body weight 2240 [oz_av] 2240 [oz_av] [place] ([facility]) Systolic blood pressure 106 mm[Hg] 106 mm[Hg] A [place] ([facility]) Body mass index (BMI) [Ratio] 19.5 kg/m2 19.5 k g/m2 [place] ([facility]) Body height 71 [in_i] 71 [in_i] [place] ([facility]) Diastolic blood pressure 70 mm[Hg] 70 mm[Hg] [place] ([facility]) Body weight 2240 [oz_av] 2240 [oz_av] [place] ([facility]) Systolic blood pressure 106 mm[Hg] 106 mm[Hg] A [facility] ([facility]) Body mass index (BMI) [Ratio] 19.5 kg/m2 19.5 k g/m2 [place] ([facility]) Body height 71 [in_i] 71 [in_i] [place] ([facility]) Diastolic blood pressure 70 mm[Hg] 70 mm[Hg] [place] ([facility]) Body weight 2240 [oz_av] 2240 [oz_av] [place] ([facility]) Systolic blood pressure 106 mm[Hg] 106 mm[Hg] A [facility] ([facility]) Body mass index (BMI) [Ratio] 19.5 kg/m2 19.5 k g/m2 [place] ([facility]) Body height 71 [in_i] 71 [in_i] [place] ([facility]) Diastolic blood pressure 70 mm[Hg] 70 mm[Hg] [place] ([facility]) Body weight 2240 [oz_av] 2240 [oz_av] [place] ([facility]) Systolic blood pressure 106 mm[Hg] 106 mm[Hg] A [facility] ([facility]) Body mass index (BMI) [Ratio] 19.5 kg/m2 19.5 k g/m2 [place] ([facility]) Body height 71 [in_i] 71 [in_i] [place] ([facility]) Diastolic blood pressure 70 mm[Hg] 70 mm[Hg] [place] ([facility]) Body height 71 [in_i] 71 [in_i] [place] ([facility]) Diastolic blood pressure 74 mm[Hg] 74 mm[Hg] [place] ([facility]) Body weight 2343.04 [oz_av] 2343.04 [oz_av] ATH [place] ([facility]) Systolic blood pressure 115 mm[Hg] 115 mm[Hg] A [facility] ([facility]) Body height 71 [in_i] 71 [in_i] [place] ([facility]) Diastolic blood pressure 74 mm[Hg] 74 mm[Hg] [place] ([facility]) Body weight 2343.04 [oz_av] 2343.04 [oz_av] ATH [facility] ([facility]) Systolic blood pressure 115 mm[Hg] 115 mm[Hg] [facility] Body height 71 [in_i] 71 [in_i] [place] ([facility]) Diastolic blood pressure 74 mm[Hg] 74 mm[Hg] [place] ([facility]) Body weight 2343.04 [oz_av] 2343.04 [oz_av] ATH [facility] ([facility]) Systolic blood pressure 115 mm[Hg] 115 mm[Hg] [facility] Body height 71 [in_i] 71 [in_i] [place] ([facility]) Diastolic blood pressure 74 mm[Hg] 74 mm[Hg] [facility] ([facility]) Body weight 2343.04 [oz_av] 2343.04 [oz_av] ATH [facility] ([facility]) Systolic blood pressure 115 mm[Hg] 115 mm[Hg] [facility] Body weight 2256 [oz_av] 2256 [oz_av] [place] ([facility]) Systolic blood pressure 126 mm[Hg] 126 mm[Hg] [facility] Body height 71 [in_i] 71 [in_i] [place] ([facility]) Diastolic blood pressure 79 mm[Hg] 79 mm[Hg] [place] ([facility]) Body weight 2256 [oz_av] 2256 [oz_av] [place] ([facility]) Systolic blood pressure 126 mm[Hg] 126 mm[Hg] [facility] Body height 71 [in_i] 71 [in_i] [place] ([facility]) Diastolic blood pressure 79 mm[Hg] 79 mm[Hg] [place] ([facility]) Body weight 2256 [oz_av] 2256 [oz_av] [place] ([facility]) Systolic blood pressure 126 mm[Hg] 126 mm[Hg] [facility] Body height 71 [in_i] 71 [in_i] [place] ([facility]) Diastolic blood pressure 79 mm[Hg] 79 mm[Hg] [place] ([facility]) Body weight 2256 [oz_av] 2256 [oz_av] [place] ([facility]) Systolic blood pressure 126 mm[Hg] 126 mm[Hg] [facility] Body height 71 [in_i] 71 [in_i] [place] ([facility]) Diastolic blood pressure 79 mm[Hg] 79 mm[Hg] [place] ([facility]) Body weight 2268.8 [oz_av] 2268.8 [oz_av] ATHEN A ([facility]) Systolic blood pressure 129 mm[Hg] 129 mm[Hg] A [facility] ([facility]) Body height 71 [in_i] 71 [in_i] [place] ([facility]) Diastolic blood pressure 81 mm[Hg] 81 mm[Hg] [place] ([facility]) Body weight 2268.8 [oz_av] 2268.8 [oz_av] [facility] A ([facility]) Systolic blood pressure 129 mm[Hg] 129 mm[Hg] [facility] Body height 71 [in_i] 71 [in_i] [place] ([facility]) Diastolic blood pressure 81 mm[Hg] 81 mm[Hg] [place] ([facility]) Body weight 2268.8 [oz_av] 2268.8 [oz_av] ATHEN A ([facility]) Systolic blood pressure 129 mm[Hg] 129 mm[Hg] [facility] Body height 71 [in_i] 71 [in_i] [place] ([facility]) Diastolic blood pressure 81 mm[Hg] 81 mm[Hg] [place] ([facility]) Body weight 2268.8 [oz_av] 2268.8 [oz_av] A[place]EN A ([facility]) Systolic blood pressure 129 mm[Hg] 129 mm[Hg] [facility] Body height 71 [in_i] 71 [in_i] [place] ([facility]) Diastolic blood pressure 81 mm[Hg] 81 mm[Hg] [place] ([facility]) Body weight 2208 [oz_av] 2208 [oz_av] [facility] ([facility]) Systolic blood pressure 110 mm[Hg] 110 mm[Hg] [facility] Body height 71 [in_i] 71 [in_i] [place] ([facility]) Diastolic blood pressure 72 mm[Hg] 72 mm[Hg] [facility] ([facility]) Body weight 2208 [oz_av] 2208 [oz_av] [facility] ([facility]) Systolic blood pressure 110 mm[Hg] 110 mm[Hg] [facility] Body height 71 [in_i] 71 [in_i] [place] ([facility]) Diastolic blood pressure 72 mm[Hg] 72 mm[Hg] [facility] ([facility]) Body weight 2208 [oz_av] 2208 [oz_av] [place] ([facility]) Systolic blood pressure 110 mm[Hg] 110 mm[Hg] A [place] ([facility]) Body height 71 [in_i] 71 [in_i] [place] ([facility]) Diastolic blood pressure 72 mm[Hg] 72 mm[Hg] [facility] ([facility]) Body weight 2208 [oz_av] 2208 [oz_av] [facility] ([facility]) Systolic blood pressure 110 mm[Hg] 110 mm[Hg] [facility] Body height 71 [in_i] 71 [in_i] [place] ([facility]) Diastolic blood pressure 72 mm[Hg] 72 mm[Hg] [facility] ([facility]) Body weight 2256 [oz_av] 2256 [oz_av] [place] ([facility]) Systolic blood pressure 123 mm[Hg] 123 mm[Hg] A [place] ([facility]) Body height 71 [in_i] 71 [in_i] [place] ([facility]) Diastolic blood pressure 79 mm[Hg] 79 mm[Hg] [place] ([facility]) Body weight 2256 [oz_av] 2256 [oz_av] [place] ([facility]) Systolic blood pressure 123 mm[Hg] 123 mm[Hg] A [place] ([facility]) Body height 71 [in_i] 71 [in_i] [place] ([facility]) Diastolic blood pressure 79 mm[Hg] 79 mm[Hg] [place] ([facility]) Body weight 2256 [oz_av] 2256 [oz_av] [place] ([facility]) Systolic blood pressure 123 mm[Hg] 123 mm[Hg] A [place] ([facility]) Body height 71 [in_i] 71 [in_i] [place] ([facility]) Diastolic blood pressure 79 mm[Hg] 79 mm[Hg] [place] ([facility]) Body weight 2256 [oz_av] 2256 [oz_av] [place] ([facility]) Systolic blood pressure 123 mm[Hg] 123 mm[Hg] A [place] ([facility]) Body height 71 [in_i] 71 [in_i] [place] ([facility]) Diastolic blood pressure 79 mm[Hg] 79 mm[Hg] [facility] ([facility]) Patient Treatment Plan of Care Planned Activity Planned Date Details Description Data Source (s) Prednisone 20 MG Oral Tablet [place] ([facility]) Buprenorphine 8 MG / Naloxone 2 MG Sublingual Tablet [place] ([facility]) Amoxicillin 875 MG / Clavulanate 125 MG Oral Tablet [place] ([facility]) Amoxicillin 875 MG Oral Tablet [place] ([facility]) Prednisone 20 MG Oral Tablet [place] ([facility]) Buprenorphine 8 MG / Naloxone 2 MG Sublingual Tablet [place] ([facility]) Amoxicillin 875 MG / Clavulanate 125 MG Oral Tablet [place] ([facility]) Amoxicillin 875 MG Oral Tablet [place] ([facility]) Prednisone 20 MG Oral Tablet [place] ([facility]) Buprenorphine 8 MG / Naloxone 2 MG Sublingual Tablet [place] ([facility]) Amoxicillin 875 MG / Clavulanate 125 MG Oral Tablet [place] ([facility]) Amoxicillin 875 MG Oral Tablet [place] ([facility]) Prednisone 20 MG Oral Tablet [place] ([facility]) Buprenorphine 8 MG / Naloxone 2 MG Sublingual Tablet [place] ([facility]) Amoxicillin 875 MG / Clavulanate 125 MG Oral Tablet [place] ([facility]) Amoxicillin 875 MG Oral Tablet [place] ([facility])
--- OUTSIDE RECORDS SUMMARY | 2020-08-10 13:58 | CCD ---
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 Public Health law. If you continue you may have access to information: Regarding HIV / AIDS; Provided by facilities licensed or operated by the [facility] Office of Mental Health; or Provided by the [facility] Office for People With Developmental Disabilities. If such information is present, then the following [facility] mandated warning applies: This information has [...] law may result in a fine or fpc sentence or both. A general authorization for the release of medical or other information is NOT sufficient authorization for further disc losure. Family History Family Member Name Family Member Gender Family Member Status Date o f Status Description Data Source(s) Unknown Male Problem [facility] ([facility]) () Unknown Unknown Encounters Encounter Providers Location Date Indications Data Source(s ) Marlon Dewey MD: [address] [place] [address], Ph. Attender: Marlon Dewey MD [facility] Medical 07/22/2020 12:00:00 AM OCT[facility]IO [facility] ([facility]) Marlon Dewey MD: [address] [place] [address], Ph. Attender: Marlon Dewey MD [facility] Medical 06/24/2020 12:00:00 AM EST [place] ([facility]) Marlon Dewey MD: [address] [place] [address], Ph. Attender: Marlon Dewey MD [facility] Medical 06/24/2020 12:00:00 AM EST [place] ([facility]) Marlon Dewey MD: [address] [place] [address], Ph. Attender: Marlon Dewey MD [facility] Medical 05/27/2020 12:00:00 AM EST [place] ([facility]) Marlon Dewey MD: [address] [place] [address], Ph. Attender: Marlon Dewey MD [facility] Medical 05/27/2020 12:00:00 AM EST [place] ([facility]) Marlon Dewey MD: [address] [place] [address], Ph. Attender: Marlon Dewey MD [facility] Medical 05/27/2020 12:00:00 AM EST [place] ([facility]) Outpatient Attender: Marlon Dewey MD 04/30/2020 12:00:46 AM [facility] Outpatient Attender: Marlon Dewey MD 04/29/2020 03:21:00 PM EST [facility] Marlon Dewey MD: [address] [place] [address], Ph. Attender: Marlon Dewey MD [facility] Medical 04/29/2020 12:00:00 AM EST [place] ([facility]) Marlon Dewey MD: [address] [place] [address], Ph. Attender: Marlon Dewey MD [facility] Medical 04/29/2020 12:00:00 AM EST [place] ([facility]) Marlon Dewey MD: [address] [place] [address], Ph. Attender: Marlon Dewey MD [facility] Medical 04/29/2020 12:00:00 AM EST [place] ([facility]) Marlon Dewey MD: [address] [place] [address], Ph. Attender: Marlon Dewey MD [facility] Medical 04/29/2020 12:00:00 AM EST [place] ([facility]) Outpatient Attender: Marlon Dewey MD 04/19/2020 12:02:07 AM EDT [facility] Outpatient Attender: Marlon Dewey MD 04/05/2020 01:19:02 PM EDT [facility] Outpatient Attender: Marlon Dewey MD 04/04/2020 02:37:00 PM EDT [facility] Outpatient Attender: EZEQUIEL ORTIZ 03/21/2020 10:00:[address] [facility] Outpatient Attender: Marlon Dewey MD 03/08/2020 12:02:11 AM EDT [facility] Outpatient Attender: Marlon Dewey MD 03/07/2020 11:08:00 AM EDT [facility] Outpatient Attender: Marlon Dewey MD 03/07/2020 12:02:21 AM EDT [facility] Outpatient Attender: Marlon Dewey MD FP 03/06/2020 10:28:01 AM EDT [facility] Outpatient Attender: Marlon Dewey MD FP 03/04/2020 11:23:02 AM EDT [facility] Outpatient Attender: Marlon Dewey MD FP 03/04/2020 11:12:00 AM EDT [facility] Outpatient Attender: Marlon Dewey MD FP 02/29/2020 12:00:39 AM EDT [facility] Outpatient Attender: Marlon Dewey MD 02/12/2020 08:44:00 AM EDT [facility] Outpatient Attender: Marlon Dewey MD FP [...] Health Outpatient Attender: Marlon Dewey MD 11/30/2019 04:49:00 PM EDT [facility] Outpatient Attender: Marlon Dewey MD 11/30/2019 04:11:00 PM EDT [facility] Outpatient Attender: Marlon Dewey MD 11/28/2019 07:48:26 PM EDT [facility] Outpatient Attender: Marlon Dewey MD 11/22/2019 11:31:01 AM EDT [facility] Outpatient Attender: Marlon Dewey MD 11/22/2019 11:30:01 AM EDT [facility]: [facility] 11/21/2019 03:35:01 PM EDT [facility] Outpatient Attender: Marlon Dewey MD [facility] 11/21/2019 07:55:00 AM EDT [facility] Outpatient Attender: Marlon Dewey MD [facility] 11/17/2019 02:17:00 PM EDT [facility] Outpatient Attender: Marlon Dewey MD [facility] 11/17/2019 02:16:00 PM EDT [facility] Outpatient Attender: [facility] Dewey [facility] 11/17/2019 02:15:00 PM EDT [facility] Outpatient Attender: Marlon MARTINEZ 11/17/2019 09:25:01 AM EDT [facility] Outpatient Attender: Marlon CHAMBERS 11/17/2019 09:24:00 AM EDT [facility] Outpatient Attender: Marlon CHAMBERS 11/17/2019 09:23:01 AM EDT [facility] Outpatient Attender: Marlon CHAMBERS 11/15/2019 12:22:00 PM EDT [facility] Outpatient Attender: Marlon CHAMBERS 06/29/2019 10:18:00 AM EST [facility] Emergency Attender: [facility] 10/22/2015 08:22:00 PM EDT - 10/22/2015 09:35:00 PM T [facility] Medications Medication Brand Name Start Date Product Form Dose Route Admi nistrative Instructions Pharmacy Instructions Status Indications Reaction Description Data Source(s) 8-2 mg 07/22/2020 12:00:00 AM EST film [address] ONE FILM UNDER THE TONGUE EVERY DAY MAXIMUM DAILY DOSE = [address] ONE FILM UNDER THE TONGUE EVERY DA Y MAXIMUM DAILY DOSE = 1 FILM SOLD: 07/22/2020 [facility] 2-0.5 mg 07/22/2020 12:00:00 AM EST [...] DAILY DOSE = ONE FILM SOLD: 01/09/2020 [facility] 8-2 mg 12/12/2019 12:00:00 AM EDT [...] prednisone 20 MG Oral Tablet ATH DERIK ([facility]) Buprenorphine 8 MG / Naloxone 2 MG Subli ngual Tablet buprenorphine 8 mg-naloxone 2 mg sublingual tablet buprenorphine 8 mg-naloxone 2 mg sublingual tablet completed buprenorphine 8 MG / naloxone 2 MG Sublingual Tablet [place] ([facility]) Prednisone 20 MG Oral Tablet prednisone 20 mg tablet TAKE THREE TABLETS BY MOUTH DAILY prednisone 20 mg tablet TAKE THREE TABLETS BY MOUTH DAILY completed prednisone 20 MG Oral Tablet ATH DERIK ([facility]) Amoxicillin 875 MG Oral Tablet amoxicill in 875 mg tablet TAKE ONE TABLET BY MOUTH TWICE A DAY FOR 7 DAYS amoxicillin 875 mg tablet TAKE ONE TABLE T BY MOUTH TWICE A DAY FOR 7 DAYS completed amoxicillin 875 MG Oral Tablet [place] ([facility]) Amoxicillin 875 MG / Clavulanate 125 MG Oral Tablet amoxicillin 875 mg-potassium clavulanate 125 mg tablet amoxicillin 875 mg-potassium clavulanate 125 mg tablet completed amoxicillin 875 MG / clavulanate 125 MG Oral Tablet [place] ([facility]) Prednisone 20 MG Oral Tablet prednisone 20 mg tablet TAKE THREE TABLETS BY MOUTH DAILY prednisone 20 mg tablet TAKE THREE TABLETS BY MOUTH DAILY completed prednisone 20 MG Oral Tablet ATH [facility]ERIK ([facility]) Amoxicillin 875 MG / Clavulanate 125 MG Oral Tablet amoxicillin 875 mg-potassium clavulanate 125 mg tablet amoxicillin 875 mg-potassium clavulanate 125 mg tablet completed amoxicillin 875 MG / clavulanate 125 MG Oral Tablet [place] ([facility]) Amoxicillin 875 MG / Clavulanate 125 MG Oral Tablet amoxicillin 875 mg-potassium clavulanate 125 mg tablet amoxicillin 875 mg-potassium clavulanate 125 mg tablet completed amoxicillin 875 MG / clavulanate 125 MG Oral Tablet [place] ([facility]) Amoxicillin 875 MG Oral Tablet amoxicill in 875 mg tablet TAKE ONE TABLET BY MOUTH TWICE A DAY FOR 7 DAYS amoxicillin 875 mg tablet TAKE ONE TABLE T BY MOUTH TWICE A DAY FOR 7 DAYS completed amoxicillin 875 MG Oral Tablet [place] ([facility]) Amoxicillin 875 MG Oral Tablet amoxicill in 875 mg tablet TAKE ONE TABLET BY MOUTH TWICE A DAY FOR 7 DAYS amoxicillin 875 mg tablet TAKE ONE TABLE T BY MOUTH TWICE A DAY FOR 7 DAYS completed amoxicillin 875 MG Oral Tablet [place] ([facility]) Amoxicillin 875 MG / Clavulanate 125 MG Oral Tablet amoxicillin 875 mg-potassium clavulanate 125 mg tablet amoxicillin 875 mg-potassium clavulanate 125 mg tablet completed amoxicillin 875 MG / clavulanate 125 MG Oral Tablet [place] ([facility]) Buprenorphine 8 MG / Naloxone 2 MG Subli ngual Tablet buprenorphine 8 mg-naloxone 2 mg sublingual tablet buprenorphine 8 mg-naloxone 2 mg sublingual tablet completed buprenorphine 8 MG / naloxone 2 MG Sublingual Tablet [facility]) Buprenorphine 8 MG / Naloxone 2 MG Subli ngual Tablet buprenorphine 8 mg-naloxone 2 mg sublingual tablet buprenorphine 8 mg-naloxone 2 mg sublingual tablet completed buprenorphine 8 MG / naloxone 2 MG Sublingual Tablet [facility]) Prednisone 20 MG Oral Tablet prednisone 20 mg tablet TAKE THREE TABLETS BY MOUTH DAILY prednisone 20 mg tablet TAKE THREE TABLETS BY MOUTH DAILY completed prednisone 20 MG Oral Tablet [facility] ([facility]) Buprenorphine 8 MG / Naloxone 2 MG Subli ngual Tablet buprenorphine 8 mg-naloxone 2 mg sublingual tablet buprenorphine 8 mg-naloxone 2 mg sublingual tablet completed buprenorphine 8 MG / naloxone 2 MG Sublingual Tablet [place] ([facility]) Amoxicillin 875 MG Oral Tablet amoxicill in 875 mg tablet TAKE ONE TABLET BY MOUTH TWICE A DAY FOR 7 DAYS amoxicillin 875 mg tablet TAKE ONE TABLE T BY MOUTH TWICE A DAY FOR 7 DAYS completed amoxicillin 875 MG Oral Tablet [place] ([facility]) Insurance Providers Payer name Policy type / Coverage type Policy ID Covered green party ID Covered green party's relationship to kurtz Policy Kurtz Plan Information [facility] COMMUNITY PLAN MCDO [id number] SP [id number] SELF PAY UNAVAILABLE SP UNAVAILA BLE [facility] [id number] S [id number] Man[facility] - [facility] Community Plan P [id number] S [id number] Medicaid S [id number] S [id number] [facility] STRATEGIES [id number] S [id number] MEDICAID [id number] [facility](MCAID) O [id number] S [id number] [facility] [id number] S [id number] Medicaid S [id number] S [id number] Managed Care - [facility] P [id number] S [id number] Medicaid S [id number] S [id number] Managed Care - [facility] P [id number] S [id number] [facility] I [id number] Self [id number] ANSI-Medicaid [id number] MVP EXCHANGE U [id number] Self [id number] Medicaid S none S none Self Pay P none S none ANS-Medicaid [id number] ANS-Medicaid [id number] [facility] COMMUNTY PLAN [id number] 18 [id number] [facility] Communty Plan Medicaid [id number] Self 10 [id number] HC COMMUNITY PLAN XIX [id number] [facility] Communty Plan Medicaid [id number] Self 10 [id number] [facility] Communty Plan Medicaid [id number] Self 10 [id number] LIFETIME BENEFIT SOLUTIO O [id number] S [id number] AMERICHOICE UNHC XIX [facility] [id number] 1 [id number] LIFETIME BENEFIT SOLUTIONS [id number] SP [id number] [facility] [id number] SP [id number] SELF PAY ONLY UNAVAILABLE SP UNAV AILABLE MEDICAID [id number] SP [id number] SELF PAY ONLY [id number] SP [id number] SELF PAY SP [id number] S [id number] [facility] COMM HMO [id number] S [id number] SELF PAY SP UNAVAILABLE UNAVAILA BLE [facility] ARIANNA HMO [id number] S [id number] Self Pay P UNAVAILABLE S UNAVAILA BLE D MVP P UNAVAILABLE S UNAVAILA BLE MVP EXCHANGE U [id number] Self [id number] [place] Medigap Part B Self Medicaid [place] Medigap Part B Self c Community Plan Commercial Self [facility] Health Maintenance Organization (HMO) Self UN COMMUNITY PLAN [facility] UN[facility] SP UNKNOWN [id number] Problems, Conditions, and Diagnoses Code Display Name Description Problem Type Effective Dates Data Source(s) 145429160 Mass of oral cavity Mass of Oral Cavity Problem 0 02/06/2020 12:00:00 AM EDT [place] ([facility]) 217174669 Mass of oral cavity Mass of Oral Cavity Problem 0 02/06/2020 12:00:00 AM EDT [place] ([facility]) 581660712 Mass of oral cavity Mass of Oral Cavity Problem 0 02/06/2020 12:00:00 AM EDT [place] ([facility]) [id number] Mass of oral cavity Mass of Oral Cavity Problem 0 02/06/2020 12:00:00 AM EDT [place] ([facility]) 417946031 Opioid dependence in remission Opioid Dependence in Re mission Problem 11/30/2019 12:00:00 AM EDT [place] ([facility]) 950946799 Opioid dependence in remission Opioid Dependence in Re mission Problem 11/30/2019 12:00:00 AM EDT [place] ([facility]) 986410732 Opioid dependence in remission Opioid Dependence in Re mission Problem 11/30/2019 12:00:00 AM EDT [place] ([facility]) 342968138 Opioid dependence in remission Opioid Dependence in Re mission Problem 11/30/2019 12:00:00 AM EDT [place] ([facility]) F60.9 Personality disorder, unspecified PERSONALITY DI SORDER, UNSPECIFIED Diagnosis 03/21/2020 10:00:00 AM EDT [facility] Results ID Date Data Source [id number] 06/24/2020 12:00:00 AM EST [place] [facility]) Name Value Range Interpretation Code Description Data Tanisha rce(s) Supporting Document(s) ID Date Data Source [id number] 05/27/2020 12:46:00 PM EST [place] ([facility]) Name Value Range Interpretation Code Description Data Tanisha rce(s) Supporting Document(s) ID Date Data Source [id number] 05/27/2020 12:46:00 PM EST [place] [facility]) Name Value Range Interpretation Code Description Data Tanisha rce(s) Supporting Document(s) ID Date Data Source [id number] 04/04/2020 12:00[facility] Name Value Range Interpretation Code Description Data Tanisha rce(s) Supporting Document(s) ID Date Data Source [id number] 04/04/2020 12:00:00 AM ED[facility] Name Value Range Interpretation Code Description Data Tanisha rce(s) Supporting Document(s) ID Date Data Source [id number] 04/04/2020 12:00:00 AM EDT [facility] Name Value Range Interpretation Code Description Data Tanisha rce(s) Supporting Document(s) ID Date Data Source [id number] 04/04/2020 12:00:00 AM EDT [facility] Name Value Range Interpretation Code Description Data Tanisha rce(s) Supporting Document(s) Procedure Vital Signs ID Date Data Source UNK Name Value Range Interpretation Code Description Data Source(s) Body weight 2336 [oz_av] 2336 [oz_av] [facility] ([facility]) Systolic blood pressure 142 mm[Hg] 142 mm[Hg] A THEN ([facility]) Body mass index (BMI) [Ratio] 20.4 kg/m2 20.4 k g/m2 [place] ([facility]) Body height 71 [in_i] 71 [in_i] [place] ([facility]) Diastolic blood pressure 86 mm[Hg] 86 mm[Hg] [place] ([facility]) Body weight 2342 [oz_av] 2342 [oz_av] [place] ([facility]) Systolic blood pressure 123 mm[Hg] 123 mm[Hg] A [facility] ([facility]) Body mass index (BMI) [Ratio] 20.4 kg/m2 20.4 k g/m2 [place] ([facility]) Body height 71 [in_i] 71 [in_i] [place] ([facility]) Diastolic blood pressure 78 mm[Hg] 78 mm[Hg] [place] ([facility]) Body weight 2342 [oz_av] 2342 [oz_av] [place] ([facility]) Systolic blood pressure 123 mm[Hg] 123 mm[Hg] A THEN ([facility]) Body mass index (BMI) [Ratio] 20.4 kg/m2 20.4 k g/m2 [place] ([facility]) Body height 71 [in_i] 71 [in_i] [place] ([facility]) Diastolic blood pressure 78 mm[Hg] 78 mm[Hg] [place] ([facility]) Body weight 2240 [oz_av] 2240 [oz_av] [place] ([facility]) Systolic blood pressure 106 mm[Hg] 106 mm[Hg] A THENA ([facility]) Body mass index (BMI) [Ratio] 19.5 kg/m2 19.5 k g/m2 [place] ([facility]) Body height 71 [in_i] 71 [in_i] [place] ([facility]) Diastolic blood pressure 70 mm[Hg] 70 mm[Hg] [place] ([facility]) Body weight 2240 [oz_av] 2240 [oz_av] [place] ([facility]) Systolic blood pressure 106 mm[Hg] 106 mm[Hg] A [facility] ([facility]) Body mass index (BMI) [Ratio] 19.5 kg/m2 19.5 k g/m2 [place] ([facility]) Body height 71 [in_i] 71 [in_i] [place] ([facility]) Diastolic blood pressure 70 mm[Hg] 70 mm[Hg] [place] ([facility]) Body weight 2240 [oz_av] 2240 [oz_av] [place] ([facility]) Systolic blood pressure 106 mm[Hg] 106 mm[Hg] A [facility] ([facility]) Body mass index (BMI) [Ratio] 19.5 kg/m2 19.5 k g/m2 [place] ([facility]) Body height 71 [in_i] 71 [in_i] [place] ([facility]) Diastolic blood pressure 70 mm[Hg] 70 mm[Hg] [place] ([facility]) Body weight 2240 [oz_av] 2240 [oz_av] [place] ([facility]) Systolic blood pressure 106 mm[Hg] 106 mm[Hg] A [facility] ([facility]) Body mass index (BMI) [Ratio] 19.5 kg/m2 19.5 k g/m2 [place] ([facility]) Body height 71 [in_i] 71 [in_i] [place] ([facility]) Diastolic blood pressure 70 mm[Hg] 70 mm[Hg] [place] ([facility]) Body height 71 [in_i] 71 [in_i] [place] ([facility]) Diastolic blood pressure 74 mm[Hg] 74 mm[Hg] [place] ([facility]) Body weight 2343.04 [oz_av] 2343.04 [oz_av] ATH [facility]ER[facility] ([facility]) Systolic blood pressure 115 mm[Hg] 115 mm[Hg] A [facility] ([facility]) Body height 71 [in_i] 71 [in_i] [place] ([facility]) Diastolic blood pressure 74 mm[Hg] 74 mm[Hg] [place] ([facility]) Body weight 2343.04 [oz_av] 2343.04 [oz_av] ATH [facility] ([facility]) Systolic blood pressure 115 mm[Hg] 115 mm[Hg] [facility] Body height 71 [in_i] 71 [in_i] [place] ([facility]) Diastolic blood pressure 74 mm[Hg] 74 mm[Hg] [place] ([facility]) Body weight 2343.04 [oz_av] 2343.04 [oz_av] ATH [facility] ([facility]) Systolic blood pressure 115 mm[Hg] 115 mm[Hg] [facility] Body height 71 [in_i] 71 [in_i] [place] ([facility]) Diastolic blood pressure 74 mm[Hg] 74 mm[Hg] [place] ([facility]) Body weight 2343.04 [oz_av] 2343.04 [oz_av] ATH [facility] ([facility]) Systolic blood pressure 115 mm[Hg] 115 mm[Hg] [facility] Body weight 2256 [oz_av] 2256 [oz_av] [place] ([facility]) Systolic blood pressure 126 mm[Hg] 126 mm[Hg] [facility] Body height 71 [in_i] 71 [in_i] [place] ([facility]) Diastolic blood pressure 79 mm[Hg] 79 mm[Hg] [place] ([facility]) Body weight 2256 [oz_av] 2256 [oz_av] [place] ([facility]) Systolic blood pressure 126 mm[Hg] 126 mm[Hg] [facility] Body height 71 [in_i] 71 [in_i] [place] ([facility]) Diastolic blood pressure 79 mm[Hg] 79 mm[Hg] [place] ([facility]) Body weight 2256 [oz_av] 2256 [oz_av] [place] ([facility]) Systolic blood pressure 126 mm[Hg] 126 mm[Hg] [facility] Body height 71 [in_i] 71 [in_i] [place] ([facility]) Diastolic blood pressure 79 mm[Hg] 79 mm[Hg] [place] ([facility]) Body weight 2256 [oz_av] 2256 [oz_av] [place] ([facility]) Systolic blood pressure 126 mm[Hg] 126 mm[Hg] [facility] Body height 71 [in_i] 71 [in_i] [place] ([facility]) Diastolic blood pressure 79 mm[Hg] 79 mm[Hg] [place] ([facility]) Body weight 2268.8 [oz_av] 2268.8 [oz_av] ATHEN A ([facility]) Systolic blood pressure 129 mm[Hg] 129 mm[Hg] A [facility] ([facility]) Body height 71 [in_i] 71 [in_i] [place] ([facility]) Diastolic blood pressure 81 mm[Hg] 81 mm[Hg] [place] ([facility]) Body weight 2268.8 [oz_av] 2268.8 [oz_av] ATHEN A ([facility]) Systolic blood pressure 129 mm[Hg] 129 mm[Hg] [facility] Body height 71 [in_i] 71 [in_i] [place] ([facility]) Diastolic blood pressure 81 mm[Hg] 81 mm[Hg] [place] ([facility]) Body weight 2268.8 [oz_av] 2268.8 [oz_av] ATHEN A ([facility]) Systolic blood pressure 129 mm[Hg] 129 mm[Hg] A THENA ([facility]) Body height 71 [in_i] 71 [in_i] [place] ([facility]) Diastolic blood pressure 81 mm[Hg] 81 mm[Hg] [place] ([facility]) Body weight 2268.8 [oz_av] 2268.8 [oz_av] ATHEN A ([facility]) Systolic blood pressure 129 mm[Hg] 129 mm[Hg] [facility] Body height 71 [in_i] 71 [in_i] [place] ([facility]) Diastolic blood pressure 81 mm[Hg] 81 mm[Hg] [place] ([facility]) Body weight 2208 [oz_av] 2208 [oz_av] [facility] [facility]) Systolic blood pressure 110 mm[Hg] 110 mm[Hg] [facility] Body height 71 [in_i] 71 [in_i] [facility] ([facility]) Diastolic blood pressure 72 mm[Hg] 72 mm[Hg] [facility] ([facility]) Body weight 2208 [oz_av] 2208 [oz_av] [facility] ([facility]) Systolic blood pressure 110 mm[Hg] 110 mm[Hg] [facility] Body height 71 [in_i] 71 [in_i] [facility] ([facility]) Diastolic blood pressure 72 mm[Hg] 72 mm[Hg] [facility] ([facility]) Body weight 2208 [oz_av] 2208 [oz_av] [facility] ([facility]) Systolic blood pressure 110 mm[Hg] 110 mm[Hg] [facility] ([facility]) Body height 71 [in_i] 71 [in_i] [facility] ([facility]) Diastolic blood pressure 72 mm[Hg] 72 mm[Hg] [facility] ([facility]) Body weight 2208 [oz_av] 2208 [oz_av] [facility] ([facility]) Systolic blood pressure 110 mm[Hg] 110 mm[Hg] [facility] Body height 71 [in_i] 71 [in_i] [facility] ([facility]) Diastolic blood pressure 72 mm[Hg] 72 mm[Hg] [facility] ([facility]) Body weight 2256 [oz_av] 2256 [oz_av] [facility] ([facility]) Systolic blood pressure 123 mm[Hg] 123 mm[Hg] [facility] ([facility]) Body height 71 [in_i] 71 [in_i] [facility] ([facility]) Diastolic blood pressure 79 mm[Hg] 79 mm[Hg] [facility] ([facility]) Body weight 2256 [oz_av] 2256 [oz_av] [facility] ([facility]) Systolic blood pressure 123 mm[Hg] 123 mm[Hg] [facility] ([facility]) Body height 71 [in_i] 71 [in_i] [facility] ([facility]) Diastolic blood pressure 79 mm[Hg] 79 mm[Hg] [facility] ([facility]) Body weight 2256 [oz_av] 2256 [oz_av] [facility] ([facility]) Systolic blood pressure 123 mm[Hg] 123 mm[Hg] [facility] ([facility]) Body height 71 [in_i] 71 [in_i] [facility] ([facility]) Diastolic blood pressure 79 mm[Hg] 79 mm[Hg] [facility] ([facility]) Body weight 2256 [oz_av] 2256 [oz_av] [facility] ([facility]) Systolic blood pressure 123 mm[Hg] 123 mm[Hg] [facility] ([facility]) Body height 71 [in_i] 71 [in_i] [facility] ([facility]) Diastolic blood pressure 79 mm[Hg] 79 mm[Hg] [facility] ([facility]) Patient Treatment Plan of Care Planned Activity Planned Date Details Description Data Source (s) Prednisone 20 MG Oral Tablet [facility] ([facility]) Buprenorphine 8 MG / Naloxone 2 MG Sublingual Tablet [facility] ([facility]) Amoxicillin 875 MG / Clavulanate 125 MG Oral Tablet [facility] ([facility]) Amoxicillin 875 MG Oral Tablet [facility] ([facility]) [facility] B[facility] 8 MG / Naloxone 2 MG Sublingual Tablet [facility] ([facility]) Amoxicillin 875 MG / Clavulanate 125 MG Oral Tablet [facility] ([facility]) Amoxicillin 875 MG Oral Tablet [facility] ([facility]) Prednisone 20 MG Oral Tablet [facility] ([facility]) Buprenorphine 8 MG / Naloxone 2 MG Sublingual Tablet [facility] ([facility]) Amoxicillin 875 MG / Clavulanate 125 MG Oral Tablet [facility] ([facility]) Amoxicillin 875 MG Oral Tablet [facility] ([facility]) Prednisone 20 MG Oral Tablet [facility] ([facility]) Buprenorphine 8 MG / Naloxone 2 MG Sublingual Tablet [facility] ([facility]) Amoxicillin 875 MG / Clavulanate 125 MG Oral Tablet [facility] ([facility]) Amoxicillin 875 MG Oral Tablet [facility] ([facility])
== END 2020-08-10 13:24 | disposition home or self-care (01) ==
LOC: M ED 11:53
DX: K08.89 Other specified disorders of teeth and supporting structures (principal); F17.200 Nicotine dependence, unspecified, uncomplicated; Z79.2 Long term (current) use of antibiotics; Z79.899 Other long term (current) drug therapy
CPT/HCPCS: 80047; 85025; 85652; 86140; 96365; 96375; 99283; J1100

== ENCOUNTER → 2021-02-17 | Outpatient (CLI) | payer OTHER ==
[~2021-02-17] MED LIST changes: +BUPR1FIL SL; +BUPR1FIL35 SL; +IBUP200T45 PO
== END ==
LOC: M LABSMTC 09:17
PROVIDERS: ATTEND Anesthesiology
DX: Z01.818 Encounter for other preprocedural examination (principal); Z11.52 Encounter for screening for COVID-19

== ENCOUNTER 2021-02-20 10:51 | Day surgery (SDC) | payer OTHER ==
[~2021-02-20] VITALS: Ht 180.3 cm; Wt 63.9 kg
[~2021-02-20 10:51] MED LIST changes: +AMPICILLIN SOD/SULBACTAM SOD 3 GM in D5W MINI-BAG PLUS 100 ML IV ONE; +LR 1,000 ML IV ONE; +dexameTHASONE 4 MG/ML 1ML VIAL (J1100 PER 1MG) IV ONE
[2021-02-20] MEDS ORDERED: LIDOCAINE 2% 100MG/5ML SDV (FOR ANES.) As Ordered ONE (13:50)
[2021-02-20] MEDS ORDERED: propofoL 200 MG/20 ML VIAL As Ordered ONE (13:50)
[2021-02-20] MEDS ORDERED: ROCURONIUM BROMIDE 50 MG/5 ML VIAL As Ordered ONE (13:50)
[2021-02-20] MEDS ORDERED: fentaNYL 100 MCG/2 ML INJECTION (J3010) As Ordered ONE ×2 (13:51→16:23)
[2021-02-20] MEDS ORDERED: ONDANSETRON 4MG/2ML VIAL As Ordered ONE (13:51)
[2021-02-20] MEDS ORDERED: MIDAZOLAM INJ 2MG/2ML VIAL (J2250 PER 1MG) As Ordered ONE ×2 (13:51→14:50)
[2021-02-20] MEDS ORDERED: dexameTHASONE 4 MG/ML 1ML VIAL (J1100 PER 1MG) As Ordered ONE (13:51)
[2021-02-20] MEDS ORDERED: LIDOCAINE 2% W/ EPINEPHRINE 1.7 ML DENTAL INJ As Ordered ONE ×2 (14:42→14:57)
[2021-02-20] MEDS ORDERED: ACETAMINOPHEN 1000MG 100ML IV BTL (OFIRMEV) (J0131 PER 10MG) As Ordered ONE (16:07)
[2021-02-20] MEDS: fentaNYL 100 MCG/2 ML INJECTION (J3010) IV PRN ×2 (16:20→16:28)
[2021-02-20] MEDS ORDERED: METOCLOPRAMIDE INJ 10MG/2ML VIAL (J2765 PER 1) IV PRN (16:25)
[2021-02-20] MEDS ORDERED: ONDANSETRON 4MG/2ML VIAL IV PRN (16:25)
[2021-02-20] MEDS ORDERED: LR 1,000 ML IV SCH (16:25)
[2021-02-20] MEDS ORDERED: PERCOCET 5MG/325MG TAB PO PRN (16:30)
[2021-02-20 17:20] VITALS: BP 108/63
--- NOTE | 2021-02-20 18:13 | RO ---
OPERATIVE NOTE DATE OF OPERATION: 02/20/2021 SURGEON: Ivan Gonzalez D.M.D. PREOPERATIVE DIAGNOSES: 1. History of substance abuse, severe dental anxiety. 2. Hopeless and symptomatic dentition including gross caries of teeth number 2, 3, 4, 5, 6, 7, 8, 9, 10, 11, 12, 13, 14, 21, 22, 23, 24, 25, 26, 27, 28. POSTOPERATIVE DIAGNOSIS: Status post the above. PROCEDURE PERFORMED: Extraction of the aforementioned teeth. ANESTHESIA USED: General endotracheal anesthesia via nasal ALBERTO. SPECIMEN: Teeth for gross only. INDICATIONS FOR SURGERY: Frankie is a pleasant 45-year-old male referred to my office by his dentist for evaluation for extraction of all of his teeth. 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 He tells me that he does not want to have any memory of the procedure. I discussed IV sedation in the office. He does not want that, he wants to be unconscious and desires general anesthesia. I have gone over the risks and benefits and alternatives to the treatment. I did offer him IV sedation in the office versus general anesthesia in the operating room. He wants general anesthesia in the operating room; therefore, we did get insurance approval and we set him up for that. A complete history and physical is in the patient's chart. His informed consent was reviewed, signed by the patient, and is also in the patient's chart. DESCRIPTION OF PROCEDURE: The patient was taken back to the operating room and laid supine on the operating room table. Ulnar nerve protectors were placed. Noninvasive cardiac monitors were applied. At that point, the patient underwent general anesthesia and was intubated with a nasal ALBERTO. He was prepped and draped in the usual sterile fashion. A timeout procedure was performed identifying the patient, the procedure, and any other precautions. Preoperative antibiotics and steroids were given in the IV. A moist throat pack was inserted in the patient's oropharynx followed by the administration of six carpules of 2% lidocaine with 1:100,000 epinephrine as local infiltration blocks. At this point, teeth number 2, 3, 7, 8, 9, 10, 23, 24, 25, and 26 were luxated and delivered in a routine simple fashion with forceps. Teeth number 4, 5, 6, 11, 12, 13, 14, 21, 22, 27, and 28, in those areas, a full-thickness flap was released. A small buccal trough was made. At this point, the teeth were luxated and delivered with ease. All of the sockets were curetted and irrigated. No sinus exposure was noted. Once all of the teeth were removed, all of the flaps were closed with 3-0 chromic sutures. Gauze hemostasis was easily achieved. The oral cavity was irrigated and suctioned. The throat pack was removed. The patient was awakened from general anesthesia and taken back to the PACU. COMPLICATIONS: None. ESTIMATED BLOOD LOSS: 50 mL. DRAINS: No drains were placed.
== END 2021-02-20 17:56 | disposition home or self-care (01) ==
LOC: M SDC 10:51
PROVIDERS: ATTEND Dentist
DX: F40.232 Fear of other medical care (principal); K08.89 Other specified disorders of teeth and supporting structures; F11.11 Opioid abuse, in remission; R01.1 Cardiac murmur, unspecified; F17.210 Nicotine dependence, cigarettes, uncomplicated; Z88.1 Allergy status to other antibiotic agents; Z88.5 Allergy status to narcotic agent; Z79.891 Long term (current) use of opiate analgesic
CPT/HCPCS: 88300; D7140; D7210; J0131; J1100; J2250; J2405; J3010

== ENCOUNTER 2024-01-29 11:02 | Emergency (ER) | payer OTHER ==
[~2024-01-29] VITALS: Ht 180.3 cm; Wt 65.0 kg
[~2024-01-29 11:02] MED LIST changes: -AMPICILLIN SOD/SULBACTAM SOD 3 GM in D5W MINI-BAG PLUS 100 ML IV ONE; -IBUP200T45 PO; +IBUP200T46 PO; -LR 1,000 ML IV ONE; -dexameTHASONE 4 MG/ML 1ML VIAL (J1100 PER 1MG) IV ONE
[2024-01-29] MEDS ORDERED: ALBU8.5H (11:10)
[2024-01-29] MEDS ORDERED: BUPR1FIL3 (11:10)
[2024-01-29] MEDS ORDERED: FLUT1BLS17 (11:10)
[2024-01-29] MEDS ORDERED: MECL25CH45 (11:10)
[2024-01-29] MEDS ORDERED: ISOVUE-370 76% 100ML VIAL As Ordered ONE (11:16)
[2024-01-29 11:42] VITALS: BP 121/84; TEMP 97.5; O2SAT 98
[2024-01-29 11:57] LABS: BASO # 0.1 10^3/uL (0.0-0.2); BASO % 0.9 % (0.0-1.0); EOS # 0.1 10^3/uL (0.0-0.5); EOS % 1.8 % (0.0-3.0); HEMATOCRIT 40.1 % (42.0-52.0); HEMOGLOBIN 13.6 g/dl (13.5-17.5); LYMPH # 1.4 10^3/uL (1.5-5.0); MEAN CORPUSCULAR HEMOGLOBIN 32.3 pg (27.0-33.0); MEAN CORPUSCULAR HGB CONC 33.9 g/dl (32.0-36.5); MEAN CORPUSCULAR VOLUME 95.2 fl (80.0-96.0); MONO # 0.4 10^3/uL (0.0-0.8); MONO % 7.4 % (2.0-8.0); NEUTROPHILS # 3.5 10^3/uL (1.5-8.5); NEUTROPHILS % 63.7 % (36.0-66.0); PLATELET COUNT, AUTOMATED 265 10^3/uL (150-450); RED BLOOD COUNT 4.21 10^6/uL (4.30-6.10); WHITE BLOOD COUNT 5.5 10^3/uL (4.0-10.0)
[2024-01-29 12:14] LABS: INR 0.95; PARTIAL THROMBOPLASTIN TIME 22.7 SECONDS (24.8-34.2); PROTHROMBIN TIME 12.4 SECONDS (12.5-14.5)
[2024-01-29 12:20] LABS: BLOOD UREA NITROGEN 9 MG/DL (9-23); CALCIUM LEVEL 9.4 MG/DL (8.5-10.1); CARBON DIOXIDE LEVEL 33 MMOL/L (20-31); CHLORIDE LEVEL 105 MMOL/L (98-107); CK-MB VALUE MASS < 1.0 NG/ML (<3.6); CREATININE FOR GFR 0.58 MG/DL (0.70-1.30); GLOMERULAR FILTRATION RATE > 60.0 (>60); GLUCOSE, FASTING 94 MG/DL (60-100); POTASSIUM SERUM 4.6 MMOL/L (3.5-5.1); SODIUM LEVEL 139 MMOL/L (136-145)
[2024-01-29 12:23] LABS: CPK CREATINE PHOSPHOKINASE 53 U/L (46-171); MB/CK RELATIVE INDEX 1.88 (< OR =4)
[2024-01-29] MEDS: MECLIZINE 25 MG TABLET PO ONE (12:57)
[2024-01-29 13:34] LABS: CK-MB VALUE MASS < 1.0 NG/ML (<3.6)
[2024-01-29 13:35] LABS: CPK CREATINE PHOSPHOKINASE 55 U/L (46-171); MB/CK RELATIVE INDEX 1.81 (< OR =4)
[2024-01-29 14:04] VITALS: TEMP 97.9
[2024-01-29 14:45] VITALS: BP 107/65; O2SAT 100
[2024-01-29] MEDS: LORazepam 2 MG/ML 1ML VIAL IV ONE (14:53)
== END 2024-01-29 17:54 | disposition home or self-care (01) ==
LOC: M ED 11:02
DX: R42 Dizziness and giddiness (principal); R00.1 Bradycardia, unspecified; R01.1 Cardiac murmur, unspecified; F17.210 Nicotine dependence, cigarettes, uncomplicated; Z88.8 Allergy status to other drugs, medicaments and biological substances; Z79.51 Long term (current) use of inhaled steroids; Z79.899 Other long term (current) drug therapy
CPT/HCPCS: 70450; 70496; 70498; 70544; 70551; 71045; 80047; 80048; 82550; 82553; 84484; 85025; 85610; 85730; 86850; 86900; 86901; 93005; 93041; 94760; 96374; 99285; J2060; Q9967